=== PATIENT | female | born 2000 | race Caucasian/White ===

== ENCOUNTER 2022-07-31 12:37 | Inpatient (IN) ==
--- NOTE | 2022-07-31 13:38 | Emergency Department Note ---
Impression & Plan Depression with suicidal ideation ED Provider Note NAME: DELMI ZHOU AGE: 21 SEX: F ARRIVES VIA: [employer] INFORMANT: Patient ED PROVIDER(S): Ulises Chandler MD CHIEF COMPLAINT: Suicidal ideation with plan, referred. PLAN: Disposition: Admit MEDICAL DECISION MAKING: The patient has a 21-year-old woman, [facility] who presents to the emergency department referred from [facility] or evaluation of suicidal ideation with plan to overdose on her medications in the setting of a history of depression and prior suicide attempt when she was 14 years old. Patient reports she has been feeling increasingly depressed, hopeless with suicidal ideation over the st week or so where she she reports she has had several people he is close to over the past 6 months. She reports school is also a stressor. She denies any recent illness including fevers, chills, cough, congestion, GI or symptoms. She uses marijuana daily. She denies etoh or drug use. On arrival the patient is melancholy appearing but no acute distress, afebrile with stable vital signs. She has a flat affect. She reports depression, hopelessness and SI with plan to overdose per HPI above. Exam is otherwise unremarkable. WBC 4.6K, non-specific. H/H and platelets wnl. Chemistry without metabolic acidosis. Electrolytes and LFTs unremarkable. TSH wnl. Hcg negative. UA without convincing evidence of infection. Drug screen positive for THC and Benzodiazepines. Covid-19 RNA, NAAT negative. The patient was medically clear. The patient is interested and willing for inpatient psychiatric admission. Patient was accepted to for voluntary admission. 201 signed. Triage Nursing notes reviewed and agree them. Prior/outside medical records reviewed Vital Signs: reviewed Differential diagnosis: Mood disorder, infection, hypoglycemia, electrolyte abnormalities, cardiac sources, intracerebral event, toxicologic, trauma, neurologic, as well as other pathologies. ER treatment provided: See below. Laboratory studies: See below HPI: The patient has a 21-year-old woman, [facility] who presents to the emergency department referred from [facility] or evaluation of suicidal ideation with plan to overdose on her medications in the setting of a history of depression and prior suicide attempt when she was 14 years old. Patient reports she has been feeling increasingly depressed, hopeless with suicidal ideation over the past week or so where she she reports she has had several people he is close to over the past 6 months. She reports school is also a stressor. She denies any recent illness including fevers, chills, cough, congestion, GI or symptoms. She uses marijuana daily. She denies etoh or drug use. ROS: See above HPI for pertinent positives & negatives. A total of 10 systems reviewed and were otherwise negative. VITALS:See Below PHYSICAL EXAMINATION: GENERAL: Awake, alert, well-appearing, in no distress HENT: Normocephalic, atraumatic. Oropharynx unremarkable. EYES: Normal conjunctiva. Sclera non-icteric. NECK: Supple. No nuchal rigidity. FROM. No JVD. RESPIRATORY: Clear to auscultation. CARDIAC: Regular rate, normal rhythm. Extremities warm and well perfused. Pulses equal. ABDOMEN: Soft, non-distended. No tenderness to palpation. No rebound or guarding. No masses. RECTAL: Deferred. MUSCULOSKELETAL: Chest examination reveals no tenderness. The back is symmetrical on inspection without obvious abnormality. There is no CVA tenderness to palpation. No joint edema. LOWER EXTREMITIES: Calves are equal size bilaterally and non-tender. No edema. No discoloration. NEURO: Normal sensorium. No sensory or motor deficits noted. SKIN: No rash or jaundice noted. PSYCH: Endorses depression, SI with plan, hopelessness. Ulises Chandler MD Past Med/Surg History Medical History Depression Intentional overdose Per patient suicide attempt by overdose when she was 14 years old. Social History Smoking Status: Current every day smoker Preferred Language: French Communication Ability: Effective Director Of Instrumental Music Required: No Beliefs That Will Affect Care: None Feels Safe at Home: Yes Gender Identity: Female Assistive Devices: Contacts Allergies Allergies Allergy/AdvReac Type Severity Reaction Status Date / Time No Known Allergies Allergy Unverified 07/31/22 13:22 Home Meds Home Medications Medication Instructions Recorded Confirmed Lamictal 25 mg PO DAILY 07/31/22 07/31/22 Prozac 40 mg PO DAILY 07/31/22 07/31/22 Rexulti 1 mg PO DAILY 07/31/22 07/31/22 Results & Data (ED) Vital Signs Vital Signs - 24 hr 07/31/22 12:45 Temperature 36.9 C Temperature Source Oral Pulse Rate 96 H Respiratory Rate 18 Respiratory Effort / Characteristics Non-Labored Spontaneous Respiratory Depth Normal Respiratory Pattern Regular Blood Pressure 129/99 Blood Pressure Mean 109 Blood Pressure Position Sitting Pulse Oximetry 99 Oxygen Delivery Method Room Air Sepsis Recent Fever Within 48 Hours No Sepsis New/Unexplained Change in Mental Status No Sepsis Action Taken by Nursing No Action Required Laboratory Data Attestation: I reviewed the patient's lab results. 07/31/22 13:01 07/31/22 13:01 Lab Results 07/31/22 07/31/22 07/31/22 Range/Units 12:50 12:50 13:00 WBC (4.8-10.8) K/ul RBC (4.20-5.40) M/uL Hgb (12.0-16.0) g/dl Hct (37.0-47.0) % MCV (80.0-100.0) fL MCH (25.0-34.0) pg MCHC (32.0-36.0) g/dL RDW Std Deviation (36.4-46.3) fL RDW Coeff of Jessica (11.5-14.5) % Plt Count (130-400) K/uL MPV (9.4-12.4) fL Immature Gran % (Auto) % Neut % (Auto) % Lymph % (Auto) % Millard % (Auto) % Eos % (Auto) % Baso % (Auto) % Neut # (Auto) (1.40-6.50) K/uL Lymph # (Auto) (1.2-3.4) K/uL Millard # (Auto) (0.11-0.59) K/uL Eos # (Auto) (0-0.50) K/uL Baso # (Auto) (0-0.2) K/uL Immature Gran # (Auto) (0.01-0.20) K/uL Sodium (136-145) mmol/L Potassium (3.5-5.1) mmol/L Chloride (98-107) mmol/L Carbon Dioxide (21-32) mmol/L Anion Gap (3-11) BUN (6-23) mg/dl Creatinine (0.6-1.2) mg/dl Est Cr Clr Drug Dosing ml/min Est GFR ( Amer) ml/min Est GFR (Non-Af Amer) ml/min BUN/Creatinine Ratio (10-20) Glucose (70-99(Fasting)) mg/dl Calcium (8.5-10.1) mg/dl Total Bilirubin (0.2-1.0) mg/dl AST (13-39) U/L ALT (7-52) U/L Alkaline Phosphatase (34-104) U/L Total Protein (6.0-8.3) gm/dl Albumin (3.4-5.0) gm/dl Globulin (2.5-4.0) gm/dl Albumin/Globulin Ratio (0.9-2) TSH (0.300-4.500) uIu/ml HCG, Qual (Negative) Urine Color Yellow Urine Appearance Clear (Clear) Urine pH 7.0 (4.5-7.5) Ur Specific Odin 1.011 (1.000-1.030) Urine Protein Negative (Negative) Urine Glucose (UA) Negative (Negative) Urine Ketones Negative (Negative) Urine Blood Negative (Negative) Urine Nitrite Negative (Negative) Urine Bilirubin Negative (Negative) Urine Urobilinogen Negative (Negative) Ur Leukocyte Esterase Negative (Negative) Salicylates (3.0-30) mg/dl Urine Opiates Screen Neg (Neg) Ur Methadone, Qual Neg (Neg) Acetaminophen (10-30) ug/ml Urine Barbiturates Neg (Neg) Ur Phencyclidine (PCP) Neg (Neg) U Amphetamin/Meth Scrn Neg (Neg) MDMA (Ecstasy) Screen Neg (Neg) U Benzodiazepines Scrn Pos H (Neg) Ur Cocaine Metabolite Neg (Neg) U Marijuana (THC) Screen Pos H (Neg) Ethyl Alcohol mg/dL (<10.0) mg/dl SARS-CoV-2, RNA, NAAT NEGATIVE (NEGATIVE) 07/31/22 07/31/22 07/31/22 Range/Units 13:01 13:01 13:01 WBC 4.66 L (4.8-10.8) K/ul RBC 4.55 (4.20-5.40) M/uL Hgb 14.1 (12.0-16.0) g/dl Hct 39.6 (37.0-47.0) % MCV 87.0 (80.0-100.0) fL MCH 31.0 (25.0-34.0) pg MCHC 35.6 (32.0-36.0) g/dL RDW Std Deviation 40.1 (36.4-46.3) fL RDW Coeff of Jessica 12.7 (11.5-14.5) % Plt Count 343 (130-400) K/uL MPV 9.6 (9.4-12.4) fL Immature Gran % (Auto) 0.2 % Neut % (Auto) 61.9 % Lymph % (Auto) 29.8 % Millard % (Auto) 7.3 % Eos % (Auto) 0.4 % Baso % (Auto) 0.4 % Neut # (Auto) 2.88 (1.40-6.50) K/uL Lymph # (Auto) 1.39 (1.2-3.4) K/uL Millard # (Auto) 0.34 (0.11-0.59) K/uL Eos # (Auto) 0.02 (0-0.50) K/uL Baso # (Auto) 0.02 (0-0.2) K/uL Immature Gran # (Auto) 0.01 (0.01-0.20) K/uL Sodium 138 (136-145) mmol/L Potassium 3.6 (3.5-5.1) mmol/L Chloride 107 (98-107) mmol/L Carbon Dioxide 24 (21-32) mmol/L Anion Gap 7 (3-11) BUN 10 (6-23) mg/dl Creatinine 0.60 (0.6-1.2) mg/dl Est Cr Clr Drug Dosing 145.2 ml/min Est GFR ( Amer) > 150.0 ml/min Est GFR (Non-Af Amer) 130.3 ml/min BUN/Creatinine Ratio 16.7 (10-20) Glucose 100 H (70-99(Fasting)) mg/dl Calcium 9.4 (8.5-10.1) mg/dl Total Bilirubin 0.5 (0.2-1.0) mg/dl AST 17 (13-39) U/L ALT 21 (7-52) U/L Alkaline Phosphatase 43 (34-104) U/L Total Protein 7.5 (6.0-8.3) gm/dl Albumin 4.9 (3.4-5.0) gm/dl Globulin 2.6 (2.5-4.0) gm/dl Albumin/Globulin Ratio 1.9 (0.9-2) TSH 1.374 (0.300-4.500) uIu/ml HCG, Qual (Negative) Urine Color Urine Appearance (Clear) Urine pH (4.5-7.5) Ur Specific Odin (1.000-1.030) Urine Protein (Negative) Urine Glucose (UA) (Negative) Urine Ketones (Negative) Urine Blood (Negative) Urine Nitrite (Negative) Urine Bilirubin (Negative) Urine Urobilinogen (Negative) Ur Leukocyte Esterase (Negative) Salicylates (3.0-30) mg/dl Urine Opiates Screen (Neg) Ur Methadone, Qual (Neg) Acetaminophen (10-30) ug/ml Urine Barbiturates (Neg) Ur Phencyclidine (PCP) (Neg) U Amphetamin/Meth Scrn (Neg) MDMA (Ecstasy) Screen (Neg) U Benzodiazepines Scrn (Neg) Ur Cocaine Metabolite (Neg) U Marijuana (THC) Screen (Neg) Ethyl Alcohol mg/dL (<10.0) mg/dl SARS-CoV-2, RNA, NAAT (NEGATIVE) 07/31/22 07/31/22 07/31/22 Range/Units 13:01 13:01 13:01 WBC (4.8-10.8) K/ul RBC (4.20-5.40) M/uL Hgb (12.0-16.0) g/dl Hct (37.0-47.0) % MCV (80.0-100.0) fL MCH (25.0-34.0) pg MCHC (32.0-36.0) g/dL RDW Std Deviation (36.4-46.3) fL RDW Coeff of Jessica (11.5-14.5) % Plt Count (130-400) K/uL MPV (9.4-12.4) fL Immature Gran % (Auto) % Neut % (Auto) % Lymph % (Auto) % Millard % (Auto) % Eos % (Auto) % Baso % (Auto) % Neut # (Auto) (1.40-6.50) K/uL Lymph # (Auto) (1.2-3.4) K/uL Millard # (Auto) (0.11-0.59) K/uL Eos # (Auto) (0-0.50) K/uL Baso # (Auto) (0-0.2) K/uL Immature Gran # (Auto) (0.01-0.20) K/uL Sodium (136-145) mmol/L Potassium (3.5-5.1) mmol/L Chloride (98-107) mmol/L Carbon Dioxide (21-32) mmol/L Anion Gap (3-11) BUN (6-23) mg/dl Creatinine (0.6-1.2) mg/dl Est Cr Clr Drug Dosing ml/min Est GFR ( Amer) ml/min Est GFR (Non-Af Amer) ml/min BUN/Creatinine Ratio (10-20) Glucose (70-99(Fasting)) mg/dl Calcium (8.5-10.1) mg/dl Total Bilirubin (0.2-1.0) mg/dl AST (13-39) U/L ALT (7-52) U/L Alkaline Phosphatase (34-104) U/L Total Protein (6.0-8.3) gm/dl Albumin (3.4-5.0) gm/dl Globulin (2.5-4.0) gm/dl Albumin/Globulin Ratio (0.9-2) TSH (0.300-4.500) uIu/ml HCG, Qual Negative (Negative) Urine Color Urine Appearance (Clear) Urine pH (4.5-7.5) Ur Specific Odin (1.000-1.030) Urine Protein (Negative) Urine Glucose (UA) (Negative) Urine Ketones (Negative) Urine Blood (Negative) Urine Nitrite (Negative) Urine Bilirubin (Negative) Urine Urobilinogen (Negative) Ur Leukocyte Esterase (Negative) Salicylates < 3.0 L (3.0-30) mg/dl Urine Opiates Screen (Neg) Ur Methadone, Qual (Neg) Acetaminophen < 3 L (10-30) ug/ml Urine Barbiturates (Neg) Ur Phencyclidine (PCP) (Neg) U Amphetamin/Meth Scrn (Neg) MDMA (Ecstasy) Screen (Neg) U Benzodiazepines Scrn (Neg) Ur Cocaine Metabolite (Neg) U Marijuana (THC) Screen (Neg) Ethyl Alcohol mg/dL < 10.0 (<10.0) mg/dl SARS-CoV-2, RNA, NAAT (NEGATIVE) Administered Medications Hydroxyzine HCl (Hydroxyzine Hcl 25 Mg Tab) 50 mg PO HSZ PRN PRN Reason: Insomnia Stop: 08/30/22 16:03 Last Admin: 07/31/22 22:03 Dose: 50 mg Documented By: DMT Discharge Plan Visit Data Chief Complaint: Mental Health Evaluation ED Provider: Ulises Chandler Discharge Problem: Depression with suicidal ideation Patient Disposition: Admitted As Inpatient Discharge Instructions Interventions: ED Discharge Assessment Last Done: 07/31/22 16:19
[2022-07-31 13:46] LABS: Basophils # (auto) 0.02 K/uL (0-0.2); Basophils % (auto) 0.4 %; Eosinophils # (auto) 0.02 K/uL (0-0.50); Eosinophils % (auto) 0.4 %; Hematocrit (blood only) 39.6 % (37.0-47.0); Hemoglobin 14.1 g/dl (12.0-16.0); Immature Granulocytes # (auto) 0.01 K/uL (0.01-0.20); Immature Granulocytes % (auto) 0.2 %; Lymphocytes # (auto) 1.39 K/uL (1.2-3.4); Lymphocytes % (auto) 29.8 %; Mean Corpuscular Hgb Conc 35.6 g/dL (32.0-36.0); Mean Platelet Volume 9.6 fL (9.4-12.4); Monocytes # (auto) 0.34 K/uL (0.11-0.59); Monocytes % (auto) 7.3 %; Neutrophils # (auto) 2.88 K/uL (1.40-6.50); Neutrophils % (auto) 61.9 %; Platelet Count 343 K/uL (130-400); RDW Coefficient of Variation 12.7 % (11.5-14.5); RDW Standard Deviation 40.1 fL (36.4-46.3); Red Blood Count 4.55 M/uL (4.20-5.40); White Blood Count 4.66 K/ul (4.8-10.8)
[2022-07-31 13:51] LABS: Pregnancy Test, Serum Negative (Negative)
[2022-07-31 14:07] LABS: Appearance Urine Clear (Clear); Bilirubin Urine Negative (Negative); Blood Urine Negative (Negative); Color Urine Yellow; Glucose Urine UA Negative (Negative); Ketones Urine Negative (Negative); Leukocyte Esterase Urine Negative (Negative); Nitrite Urine Negative (Negative); Protein Urine Negative (Negative); Specific Gravity Urine 1.011 (1.000-1.030); Urobilinogen Urine Negative (Negative)
[2022-07-31 14:09] LABS: Albumin Level 4.9 gm/dl (3.4-5.0); Anion Gap 7 (3-11); Bilirubin,Total 0.5 mg/dl (0.2-1.0); Calcium 9.4 mg/dl (8.5-10.1); Carbon Dioxide 24 mmol/L (21-32); Chloride 107 mmol/L (98-107); Potassium 3.6 mmol/L (3.5-5.1); Sodium 138 mmol/L (136-145)
[2022-07-31 14:13] LABS: Acetaminophen < 3 ug/ml (10-30); Salicylate < 3.0 mg/dl (3.0-30)
[2022-07-31 14:15] LABS: Alanine Aminotransferase 21 U/L (7-52); Albumin Globulin Ratio 1.9 (0.9-2); Alkaline Phosphatase 43 U/L (34-104); Aspartate Aminotransferase 17 U/L (13-39); BUN Creatinine Ratio 16.7 (10-20); Blood Urea Nitrogen 10 mg/dl (6-23); Creatinine Clr Calc Pharmacy 145.2 ml/min; Est GFR (African American) > 150.0 ml/min; Est GFR (Non-African American) 130.3 ml/min; Globulin 2.6 gm/dl (2.5-4.0); Glucose 100 mg/dl (70-99(Fasting)); Total Protein 7.5 gm/dl (6.0-8.3)
[2022-07-31 14:15] LABS: Amphetamines+Metham, Urine Neg (Neg); Barbiturates, Urine Neg (Neg); Benzodiazepine, Urine Pos (Neg); Cocaine, Urine Neg (Neg); MDMA (Ecstacy), Urine Neg (Neg); Methadone, Urine Neg (Neg); Opiate, Urine Neg (Neg); Phencyclidine, Urine Neg (Neg)
[2022-07-31] MEDS ORDERED: hydrOXYzine HCl 25 MG TAB PO PRN ×2 (16:04)
[2022-07-31] MEDS ORDERED: BISMUTH SUBSALICYLATE LIQD 236 ML PO PRN (16:04)
[2022-07-31] MEDS ORDERED: SODIUM CHLORIDE 0.65% NA SOLN 45 ML (OCEAN) PRN (16:04)
[2022-07-31] MEDS ORDERED: ALUMINUM/MAGNESIUM SUSP 30 ML UDC PO PRN (16:04)
[2022-07-31] MEDS ORDERED: MAGNESIUM HYDROXIDE SUSP 30 ML UDC PO PRN (16:04)
[2022-07-31] MEDS ORDERED: ACETAMINOPHEN 325 MG TAB PO PRN (16:04)
[2022-07-31] MEDS ORDERED: ALPRAZolam 0.5 MG TABLET PO PRN (16:43)
[2022-08-01] MEDS ORDERED: NICOTINE POLACRILEX 2 MG GUM MT PRN (13:21)
--- NOTE | 2022-08-01 13:28 | History & Physical ---
Date of Service August 01, 2022 Impression / Recommendations Impression Lorraine is a 21 year old woman and [employer] student who was admitted for worsening depression with SI with plans of overdosing. Diagnostically consistent with major depressive disorder, generalized anxiety disorder with panic attacks, PTSD, and ADHD per history with possibility that cannabis use could also be contributing to depression. Possibility of cluster B traits vs trauma component contributing to history of self-harm and chronic intermittent SI. She is deemed in need of psychiatric hospitalization for diagnostic clarification, safety and stabilization, medication management and development of further coping skills. She signed a 72 hour notice but is agreeable to getting treatment in the hospital as long as it is a short admission. Discussed medication treatment options in detail. Discussed risks, benefits and alternatives. Patient would like to continue with lamictal for depression, wants to discontinue fluoxetine and Rexulti (which she hasn't been taking consistently) and would like to start and consented to mirtazapine for sleep, depression, anxiety and appetite. Reviewed side effects including but not limited to: toxic fatal rash with lamictal and need to restart at 25mg daily if she ever misses more than 3 days of doses, sedation, increased appetite and counseled on black box warning of potential for emergence of or increased SI and need to let staff know should this occur or should they feel unsafe. Also discussed importance of seeking emergency care following discharge if this side effect occurs in the future with mirtazapine. (1) MDD (major depressive disorder), recurrent episode, severe: (2) Generalized anxiety disorder with panic attacks: (3) Post traumatic stress disorder (PTSD): (4) Self-harming behavior: (5) ADHD (attention deficit hyperactivity disorder): (6) Cannabis use with anxiety disorder: Plan 08/01/22: The patient was admitted to the [facility] ([facility] mental health unit) on q15 min checks (behavioral with suicide precautions) for safety. The patient will participate in group, recreational, and milieu therapies and will be offered additional individual and family sessions as clinically appropriate. -lamictal 25mg qd -start mirtazapine 15mg hs -stop fluoxetine and Rexulti -Will hold Vyvanse as non-formulary and she only takes intermittently and feels she does need while in the hospital Inventory Assets Strengths: supportive relationships, willing to get treatment, resilient, has outpatient psychiatrist Needs: safety and stabilization, medication adjustment, additional coping skills, increased outpatient services Suicide Risk Level Suicide Risk Level: High-Moderate (q15 min suicide checks) (severe depression with SI with plan prior to admission but feels safe in the hospital, able to safety contract and agrees to let nursing/staff know should they develop plan, intent or feel unable to remain safe. ) Risk Factors Assessment Male: No : Yes Do You Have Access To A Gun?: No Mental Health Diagnoses: Yes Previous Attempt: Yes Family History of Suicide: No Previous Psychiatric Hospitalization: No Protective Factors Assessment Stable Relationships: Yes Supportive Family: Yes Good Rapport with Provider: Yes Psychiatric History Identifying Data LORRAINE ZHOU is a 21-year-old [employer] senior who currently lives in [place] in a home unit she rents with roommates, has a history of depression, anxiety and ADHD and was admitted on 07/31/22 16:04 on a 201 voluntary commitment for worsening depression and SI with plans of overdosing on her medication. Chief Complaint "I'm been worried a lot about the future". History of Present Illness She presents for psychiatric admission,referred to the ED by [facility], for worsening depression and SI with plan of overdosing on her medication in the context of multiple psychosocial stressors planning for the future and upcoming graduation/academic stress. Academics have been her main stressors due to a deferred class from last semester with outstanding essays, her current classes are going alright. She thinks she is on track to graduate as long as she passes all her remaining classes. 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 Has been depressed since January since she started her senior year and worsened further in April and May. The depression makes it hard for her to go and stay in class, to focus and complete class assignments, has been slightly more socially isolated, significant difficulty with sleeping and eating. Has been experiencing SI since age 12 which have been on and off for many years. SI worsened in January and in April/May got to the point of sometimes thinking of plans. Denies any rehearsal behaviors. Identifies her parents, friends and the future as reasons for living. Also with significant anxiety and near daily panic attacks. Self-harms via cutting (normally her thighs) and burning via a sanitation worker hosing machinery on thighs typically once weekly. Her appetite has been very low which is also a recent stressor. She goes through cycles of binge eating and then restricting. She only eats a small group of foods like scottish fries. She finds that food "gives me a lot of anxiety". Has taken laxatives before, but has never purged and never exercised excessively. She feels like her appetite actually improved a little with being on stimulant medications. Endorses significant PTSD from childhood events including intrusive flashbacks, nightmares/night terrors (2-3 times per week), mood changes, avoidance. Additional recent history reviewed and confirmed as documented by ED psych CM on 07/31/2022: "The patient presented via [facility] police and reports suicidal ideation with a plan to overdose on her medications (reports history of the same when she was 14 years-old, but she cant remember what she took at that time). The patient reports she is medication compliant but is in the process of tapering off of her Prozac, Rexualte and Lamictal and was scheduled to have a psychiatry appointment tomorrow (provider is in her hometown of [place]). The patient reports stressors of school and family life and reports depressive symptoms of anergia, anhedonia, feeling helpless / hopeless and decreased concentration. She reports she only eats 1 meal a day due to her school schedule and reports poor sleep (around 4 hours per night) with problems falling and staying asleep. The patient denies manic symptoms but reports high daily levels of anxiety where she hyperventilates and has internal catatonia. The patient denies hallucinations and paranoid thinking but reports a remote history of auditory hallucinations. The patient reports she vapes and uses marijuana on a daily basis but denies other drug use. The patient denies current self-injurious behaviors but reports a history of cutting and burning when she was a teenager. The patient denies homicidal ideations, aggressive behavior and access to weapons. The patient is willing for treatment and medical clearance explained." She is currently prescribed psychiatric medications of fluoxetine 20 or 30 or 40mg daily, Rexulti 2mg daily, Lamictal 25mg daily, Vyvanse 40mg but doesn't take daily, Xanax 0.5mg BID prn for panic attacks (typically takes once daily or every other day). Psychiatric ROS notable for no current nor history of symptoms of dedra, psychosis (heard whispers for 1-2 months and would see things out of the corner of her eye during a depressive episode and was also uses cannabis, symptoms resolved when she stopped using cannabis). Past Psychiatric History Current Psychiatric Diagnosis: MDD, anxiety, ADHD (diagnosed around age [age]) Outpatient Services: telepsychiatry with provider in [place] Dr. Falcon; [facility] assigned her to a therapist but she hasn't met them yet Previous Psych Admissions: none, did an IOP x2 as an adolescent Do You Have Access To A Gun?: No History of Previous Suicide Attempt: Yes Describe Attempts in the Past: age 14 via overdose (never sought help or tx for this) Past Medication Trials: Adderall, Klonopin, trazodone for sleep, Wellbutrin, sertraline, escitalopram, venlafaxine, Cymbalta, possibly abilify Past Head Trauma/Neuro History History of Concussion/Seizure: Yes (possible concussion at age 3 ?LOC) No hx seizures Allergies Allergy/AdvReac Type Severity Reaction Status Date / Time No Known Allergies Allergy Verified 08/01/22 13:33 Home Medications Medication Instructions Recorded Confirmed Type dextroamphetamine-amphetamine 10 10 mg PO DAILY 03/23/19 03/23/19 History mg tablet (Adderall) fluoxetine 20 mg capsule (Prozac) 20 mg PO DAILY 03/23/19 03/23/19 History hydroxyzine HCl 10 mg tablet 10 mg PO TID PRN 03/23/19 03/23/19 History Lamictal 25 mg PO DAILY 07/31/22 07/31/22 History Prozac 40 mg PO DAILY 07/31/22 07/31/22 History Rexulti 1 mg PO DAILY 07/31/22 07/31/22 History Family History Family History of: Depression (mom and dad), Anxiety (mom and dad) and Other- List under Comment (dad with ADHD; OCD on maternal side) Alcohol History Hx of Alcohol Use Over the Past 12 Months: No (denies) AUDIT Total Score: 0 Smoking Use Have You Smoked or Used Tobacco Products in the Last 30 Days: Yes tobacco type: e-cigarettes Smoking Status: Current every day smoker Smoking packs per day: 0.25 Substance History Hx of Prescription Med Misuse Over the Past 12 Months: No Hx of Over the Counter Med Misuse Over the Past 12 Months: No Hx of Inhalent Misuse Over the Past 12 Months: No Hx of Organic Substance Use Over the Past 12 Months: Yes (marijuana daily) Hx of Illegal Substances/Street Drug Use Over Past 12 Months: No Problems as a Result of Past Substance Use: None Identified Daily use of cannabis via inhalation usually in the evenings, likes that it has a calming effect, will use socially when peers are drinking; doesn't like that sometimes it makes her a bit paranoid or binge eat Personal History Living Arrangements: Home Childhood: parents are and she grew up in [place]. has an older brother. She feels her parents are very supportive. 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 Patient History Medical History (Updated 08/01/22 @ 14:27 by Mary Kay Dang MD) Allergy Attention deficit disorder Cough Depression Depression Intentional overdose Per patient suicide attempt by overdose when she was 14 years old. Panic attack Self-harming behavior SOB (shortness of breath) Surgical History History of placement of ear tubes Family History Mother No problems noted. Father Diabetes Social History Smoking Status: Current every day smoker Hx Alcohol Use: No Preferred Language: Vietnamese Communication Ability: Effective Scow Hand Required: No Beliefs That Will Affect Care: None Feels Safe at Home: Yes Gender Identity: Female Assistive Devices: Contacts Review of Systems 2 Review of Systems: All systems reviewed & are unremarkable except as noted in HPI & below Physical Exam Psychiatric: Orientation: alert and oriented x 3 Apperance: appropriately dressed and appropriately groomed Eye Contact: good eye contact Motor Behavior: no abnormal motor movements Speech: normal rate/rhythm/volume of speech Affect: + depressed affect and + anxious affect Mood: + depressed mood (she describes as "very apathetic") and + anxious mood Thought Process: goal directed thought process Thought Content: reality based without delusions Suicidal Thoughts: denies suicidal thoughts (none since last night when she came to the ED ), denies suicidal plan (none for here in the hospital, thoughts of overdosing prior to admission) and denies suicidal intent Homicidal Thoughts: denies homicidal thoughts Hallucinations: no auditory hallucinations and no visual hallucinations Cognition: recent memory grossly intact, remote memory grossly intact, attention grossly intact and language grossly intact Estimated Intelligence: consistent with education level Insight: + limited insight Judgment: + limited judgement Vital Signs (Past 24 Hours): Last Vital Signs Temp 36.6 C 08/01/22 06:28 Pulse 66 08/01/22 06:29 Resp 16 08/01/22 06:28 BP 114/76 08/01/22 06:29 Pulse Ox 99 07/31/22 12:45 O2 Del Method 07/31/22 12:45 Exam Statement: A physical exam was performed in the ED by Dr. Chandler for the purposes of medical clearance. I accept that physical as correct and adequate for the purposes of the inpatient physical exam. Results & Data (U) Laboratory Results Laboratory Results - last 24 hr 07/31/22 07/31/22 07/31/22 12:50 12:50 12:50 WBC RBC Hgb Hct MCV MCH MCHC RDW Std Deviation RDW Coeff of Jessica Plt Count MPV Immature Gran % (Auto) Neut % (Auto) Lymph % (Auto) [place] % (Auto) Eos % (Auto) Baso % (Auto) Neut # (Auto) Lymph # (Auto) [place] # (Auto) Eos # (Auto) Baso # (Auto) Immature Gran # (Auto) Sodium Potassium Chloride Carbon Dioxide Anion Gap BUN Creatinine Est Cr Clr Drug Dosing Est GFR ( Amer) Est GFR (Non-Af Amer) BUN/Creatinine Ratio Glucose Calcium Total Bilirubin AST ALT Alkaline Phosphatase Total Protein Albumin Globulin Albumin/Globulin Ratio TSH HCG, Qual Urine Color Yellow Urine Appearance Clear Urine pH 7.0 Ur Specific [place] 1.011 Urine Protein Negative Urine Glucose (UA) Negative Urine Ketones Negative Urine Blood Negative Urine Nitrite Negative Urine Bilirubin Negative Urine Urobilinogen Negative Ur Leukocyte Esterase Negative Salicylates Urine Opiates Screen Neg Ur Methadone, Qual Neg Acetaminophen Urine Barbiturates Neg Ur Phencyclidine (PCP) Neg U Amphetamin/Meth Scrn Neg MDMA (Ecstasy) Screen Neg U OH-Alprazolam Confrm Pending U Benzodiazepines Scrn Pos H 7-Amino Clonazepam Pending Ur Nordiazepam Confirm Pending U OH-ethylflurazepam Pending U Lorazepam Cnf GC/MS Pending U Oxazepam Confm GC/MS Pending Ur Temazepam Confirm Pending U OH-Triazolam Confirm Pending U OH-Midazolam Confirm Pending Ur Cocaine Metabolite Neg U Marijuana (THC) Screen Pos H U Marijuana THC Carboxy Pending Drug Screen Comment Pending Ethyl Alcohol mg/dL SARS-CoV-2, RNA, NAAT 07/31/22 07/31/22 07/31/22 13:00 13:01 13:01 WBC 4.66 L RBC 4.55 Hgb 14.1 Hct 39.6 MCV 87.0 MCH 31.0 MCHC 35.6 RDW Std Deviation 40.1 RDW Coeff of Jessica 12.7 Plt Count 343 MPV 9.6 Immature Gran % (Auto) 0.2 Neut % (Auto) 61.9 Lymph % (Auto) 29.8 Comal % (Auto) 7.3 Eos % (Auto) 0.4 Baso % (Auto) 0.4 Neut # (Auto) 2.88 Lymph # (Auto) 1.39 Comal # (Auto) 0.34 Eos # (Auto) 0.02 Baso # (Auto) 0.02 Immature Gran # (Auto) 0.01 Sodium 138 Potassium 3.6 Chloride 107 Carbon Dioxide 24 Anion Gap 7 BUN 10 Creatinine 0.60 Est Cr Clr Drug Dosing 145.2 Est GFR ( Amer) > 150.0 Est GFR (Non-Af Amer) 130.3 BUN/Creatinine Ratio 16.7 Glucose 100 H Calcium 9.4 Total Bilirubin 0.5 AST 17 ALT 21 Alkaline Phosphatase 43 Total Protein 7.5 Albumin 4.9 Globulin 2.6 Albumin/Globulin Ratio 1.9 TSH HCG, Qual Urine Color Urine Appearance Urine pH Ur Specific [place] Urine Protein Urine Glucose (UA) Urine Ketones Urine Blood Urine Nitrite Urine Bilirubin Urine Urobilinogen Ur Leukocyte Esterase Salicylates Urine Opiates Screen Ur Methadone, Qual Acetaminophen Urine Barbiturates Ur Phencyclidine (PCP) U Amphetamin/Meth Scrn MDMA (Ecstasy) Screen U OH-Alprazolam Confrm U Benzodiazepines Scrn 7-Amino Clonazepam Ur Nordiazepam Confirm U OH-ethylflurazepam U Lorazepam Cnf GC/MS U Oxazepam Confm GC/MS Ur Temazepam Confirm U OH-Triazolam Confirm U OH-Midazolam Confirm Ur Cocaine Metabolite U Marijuana (THC) Screen U Marijuana THC Carboxy Drug Screen Comment Ethyl Alcohol mg/dL SARS-CoV-2, RNA, NAAT NEGATIVE 07/31/22 07/31/22 07/31/22 13:01 13:01 13:01 WBC RBC Hgb Hct MCV MCH MCHC RDW Std Deviation RDW Coeff of Jessica Plt Count MPV Immature Gran % (Auto) Neut % (Auto) Lymph % (Auto) [place] % (Auto) Eos % (Auto) Baso % (Auto) Neut # (Auto) Lymph # (Auto) [place] # (Auto) Eos # (Auto) Baso # (Auto) Immature Gran # (Auto) Sodium Potassium Chloride Carbon Dioxide Anion Gap BUN Creatinine Est Cr Clr Drug Dosing Est GFR ( Amer) Est GFR (Non-Af Amer) BUN/Creatinine Ratio Glucose Calcium Total Bilirubin AST ALT Alkaline Phosphatase Total Protein Albumin Globulin Albumin/Globulin Ratio TSH 1.374 HCG, Qual Urine Color Urine Appearance Urine pH Ur Specific [place] Urine Protein Urine Glucose (UA) Urine Ketones Urine Blood Urine Nitrite Urine Bilirubin Urine Urobilinogen Ur Leukocyte Esterase Salicylates < 3.0 L Urine Opiates Screen Ur Methadone, Qual Acetaminophen < 3 L Urine Barbiturates Ur Phencyclidine (PCP) U Amphetamin/Meth Scrn MDMA (Ecstasy) Screen U OH-Alprazolam Confrm U Benzodiazepines Scrn 7-Amino Clonazepam Ur Nordiazepam Confirm U OH-ethylflurazepam U Lorazepam Cnf GC/MS U Oxazepam Confm GC/MS Ur Temazepam Confirm U OH-Triazolam Confirm U OH-Midazolam Confirm Ur Cocaine Metabolite U Marijuana (THC) Screen U Marijuana THC Carboxy Drug Screen Comment Ethyl Alcohol mg/dL < 10.0 SARS-CoV-2, RNA, NAAT 07/31/22 13:01 WBC RBC Hgb Hct MCV MCH MCHC RDW Std Deviation RDW Coeff of Jessica Plt Count MPV Immature Gran % (Auto) Neut % (Auto) Lymph % (Auto) [place] % (Auto) Eos % (Auto) Baso % (Auto) Neut # (Auto) Lymph # (Auto) [place] # (Auto) Eos # (Auto) Baso # (Auto) Immature Gran # (Auto) Sodium Potassium Chloride Carbon Dioxide Anion Gap BUN Creatinine Est Cr Clr Drug Dosing Est GFR ( Amer) Est GFR (Non-Af Amer) BUN/Creatinine Ratio Glucose Calcium Total Bilirubin AST ALT Alkaline Phosphatase Total Protein Albumin Globulin Albumin/Globulin Ratio TSH HCG, Qual Negative Urine Color Urine Appearance Urine pH Ur Specific [place] Urine Protein Urine Glucose (UA) Urine Ketones Urine Blood Urine Nitrite Urine Bilirubin Urine Urobilinogen Ur Leukocyte Esterase Salicylates Urine Opiates Screen Ur Methadone, Qual Acetaminophen Urine Barbiturates Ur Phencyclidine (PCP) U Amphetamin/Meth Scrn MDMA (Ecstasy) Screen U OH-Alprazolam Confrm U Benzodiazepines Scrn 7-Amino Clonazepam Ur Nordiazepam Confirm U OH-ethylflurazepam U Lorazepam Cnf GC/MS U Oxazepam Confm GC/MS Ur Temazepam Confirm U OH-Triazolam Confirm U OH-Midazolam Confirm Ur Cocaine Metabolite U Marijuana (THC) Screen U Marijuana THC Carboxy Drug Screen Comment Ethyl Alcohol mg/dL SARS-CoV-2, RNA, NAAT Current Inpatient Medications Current Inpatient Medications: Current Inpatient Medications Acetaminophen (Acetaminophen 325 Mg Tab) 650 mg PO Q4H PRN PRN Reason: Headache or Minor Fever Stop: 08/30/22 16:03 Al Hydrox/Mg Hydrox/Simethicone (Aluminum/Magnesium Susp 30 Ml Udc) 30 ml PO Q4H PRN PRN Reason: GI Upset Stop: 08/30/22 16:03 Alprazolam (Alprazolam 0.5 Mg Tablet) 0.5 mg PO DAILY PRN PRN Reason: panic attack Stop: 08/30/22 16:42 Bismuth Subsalicylate (Bismuth Subsalicylate Liqd 236 Ml) 15 ml PO PRN PRN PRN Reason: Loose Stool Stop: 08/30/22 16:03 Hydroxyzine HCl (Hydroxyzine Hcl 25 Mg Tab) 50 mg PO HSZ PRN PRN Reason: Insomnia Stop: 08/30/22 16:03 Last Admin: 07/31/22 22:03 Dose: 50 mg Hydroxyzine HCl (Hydroxyzine Hcl 25 Mg Tab) 25 mg PO Q4H PRN PRN Reason: Anxiety Stop: 08/30/22 16:03 Magnesium Hydroxide (Magnesium Hydroxide Susp 30 Ml Udc) 30 ml PO DAILY PRN PRN Reason: Constipation Stop: 08/30/22 16:03 Sodium Chloride (Sodium Chloride 0.65% Na Soln 45 Ml (Mccone)) 1 - 2 sprays NA PRN PRN PRN Reason: Nasal Dryness/Congestion Stop: 08/30/22 16:03
[2022-08-01] MEDS ORDERED: FLUoxetine HCL 20 MG CAP PO SCH (13:30)
[2022-08-01] MEDS: SPIRONOLACTONE 25 MG TAB PO SCH (17:12)
[2022-08-01] MEDS: NICOTINE 7 MG/24 HR TDSY TD SCH (17:14)
[2022-08-01] MEDS: MIRTAZAPINE TAB 15 MG TAB PO SCH (21:07)
[2022-08-02] MEDS: NICOTINE 7 MG/24 HR TDSY TD SCH (08:58)
[2022-08-02] MEDS: SPIRONOLACTONE 25 MG TAB PO SCH (08:59)
[2022-08-02] MEDS ORDERED: lamoTRIgine 25 MG TAB PO SCH (09:00)
--- NOTE | 2022-08-02 17:00 | Psychiatric Progress Note ---
Date of Service August 02, 2022 Impression / Recommendations Impression Lorraine is a 21 year old woman and [employer] student who was admitted for worsening depression with SI with plans of overdosing. Diagnostically consistent with major depressive disorder, generalized anxiety disorder with panic attacks, PTSD, and ADHD per history with possibility that cannabis use could also be contributing to depression. Possibility of cluster B traits vs trauma component contributing to history of self-harm and chronic intermittent SI. She is deemed in need of psychiatric hospitalization for diagnostic clarification, safety and stabilization, medication management and development of further coping skills. 08/02/22: Ongoing depression with self-harm thoughts today but has not acted on these. Using Vistaril to help with anxiety related to this, reviewed other coping skills. Possible hypotension related to mirtazapine, she wants to take it again tonight, agrees to alert RNs if similar side effects occur so vital signs can be checked. Will transition lamictal to qhs dosing tomorrow as already got dose this AM. Considering option of Luvox. If BP stable could consider clonidine trial to help with anxiety and ADHD. (1) MDD (major depressive disorder), recurrent episode, severe: (2) Generalized anxiety disorder with panic attacks: (3) Post traumatic stress disorder (PTSD): (4) Self-harming behavior: (5) ADHD (attention deficit hyperactivity disorder): (6) Cannabis use with anxiety disorder: Plan 08/02/22: Continue current medications and tx plan. 08/01/22: The patient was admitted to the [facility] ([facility] mental health unit) on q15 min checks (behavioral with suicide precautions) for safety. The patient will participate in group, recreational, and milieu therapies and will be offered additional individual and family sessions as clinically appropriate. -lamictal 25mg qd -start mirtazapine 15mg hs -stop fluoxetine and Rexulti -Will hold Vyvanse as non-formulary and she only takes intermittently and feels she does need while in the hospital Inventory Assets Strengths: supportive relationships, willing to get treatment, resilient, has outpatient psychiatrist Needs: safety and stabilization, medication adjustment, additional coping skills, increased outpatient services Suicide Risk Level Suicide Risk Level: High-Moderate (q15 min suicide checks) (severe depression with SI with plan prior to admission and still with self-harm thoughts but feels safe in the hospital, able to safety contract and agrees to let nursing/staff know should they develop plan, intent or feel unable to remain safe. 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 Chief Complaint "I'm struggling today with self-harm thoughts". Review of Systems Sleep Information Total Hours of Sleep: 7 Meal Information Percent Meal Consumed - Breakfast: 5 Percent Meal Consumed - Lunch: 0 Percent Meal Consumed - Dinner: 100 Nutrition Comment: meal dated, labeled and refrigerated Subjective Subjective Patient was seen & assessed and interval progress reviewed with treatment team nursing and social work . Increased anxiety today due to more intrusive thoughts of self-harm. Slept better with mirtazapine but had sense of racing heart last night and this morning, has now resolved and she wonders if this could be due to mirtazapine. Discussed possibility if mirtazapine causing orthostatic hypotension. She wants to try it again tonight, agrees to let RNs know if HR occurs again so they can check orthostatic vitals. Overall feels "sad". Had panic attack last night and used xanax with good benefit. Typically takes lamictal at hs, got dose this morning so will change dose tomorrow to hs. Physical Exam Psychiatric Orientation: alert and oriented x 3 Apperance: appropriately dressed and appropriately groomed Eye Contact: good eye contact Motor Behavior: no abnormal motor movements Speech: normal rate/rhythm/volume of speech Affect: + depressed affect and + anxious affect Mood: + depressed mood and + anxious mood Thought Process: goal directed thought process Thought Content: reality based without delusions Suicidal Thoughts: denies suicidal thoughts (self-harm urges to cut or burn herself but not SI), denies suicidal plan and denies suicidal intent Homicidal Thoughts: denies homicidal thoughts Hallucinations: no auditory hallucinations and no visual hallucinations Cognition: recent memory grossly intact, remote memory grossly intact, attention grossly intact and language grossly intact Estimated Intelligence: consistent with education level Insight: + limited insight Judgment: + limited judgement Vital Signs (Past 24 Hours) Last Vital Signs Temp 36.7 C 08/02/22 06:38 Pulse 50 L 08/02/22 06:38 Resp 18 08/02/22 06:38 BP 103/69 08/02/22 06:41 Pulse Ox 99 07/31/22 12:45 O2 Del Method 07/31/22 12:45 Results & Data ([facility]) Current Inpatient Medications Current Inpatient Medications: Current Inpatient Medications Acetaminophen (Acetaminophen 325 Mg Tab) 650 mg PO Q4H PRN PRN Reason: Headache or Minor Fever Stop: 08/30/22 16:03 Last Admin: 08/02/22 09:03 Dose: 650 mg Al Hydrox/Mg Hydrox/Simethicone (Aluminum/Magnesium Susp 30 Ml Udc) 30 ml PO Q4H PRN PRN Reason: GI Upset Stop: 08/30/22 16:03 Alprazolam (Alprazolam 0.5 Mg Tablet) 0.5 mg PO DAILY PRN PRN Reason: panic attack Stop: 08/30/22 16:42 Last Admin: 08/01/22 17:28 Dose: 0.5 mg Bismuth Subsalicylate (Bismuth Subsalicylate Liqd 236 Ml) 15 ml PO PRN PRN PRN Reason: Loose Stool Stop: 08/30/22 16:03 Hydroxyzine HCl (Hydroxyzine Hcl 25 Mg Tab) 50 mg PO HSZ PRN PRN Reason: Insomnia Stop: 08/30/22 16:03 Last Admin: 07/31/22 22:03 Dose: 50 mg Hydroxyzine HCl (Hydroxyzine Hcl 25 Mg Tab) 25 mg PO Q4H PRN PRN Reason: Anxiety Stop: 08/30/22 16:03 Last Admin: 08/02/22 16:13 Dose: 25 mg Lamotrigine (Lamotrigine 25 Mg Tab) 25 mg PO DAILY JUSTEN Stop: 09/01/22 08:59 Last Admin: 08/02/22 08:58 Dose: 25 mg Magnesium Hydroxide (Magnesium Hydroxide Susp 30 Ml Udc) 30 ml PO DAILY PRN PRN Reason: Constipation Stop: 08/30/22 16:03 Mirtazapine (Mirtazapine Tab 15 Mg Tab) 15 mg PO HS JUSTEN Stop: 08/31/22 21:59 Last Admin: 08/01/22 21:07 Dose: 15 mg Miscellaneous (Remove Nicoderm Patch) 1 each N/A DAILY@0859 [facility] Stop: 09/01/22 08:58 Last Admin: 08/02/22 09:02 Dose: Not Given Nicotine (Nicotine 7 Mg/24 Hr Tdsy) 7 mg TD QAM [facility] Stop: 08/31/22 13:29 Last Admin: 08/02/22 08:58 Dose: 7 mg Nicotine Polacrilex (Nicotine Polacrilex 2 Mg Gum) 1 piece MT Q1H PRN PRN Reason: nicotine cravings Stop: 08/31/22 13:20 Sodium Chloride (Sodium Chloride 0.65% Na Soln 45 Ml ([place])) 1 - 2 sprays NA PRN PRN PRN Reason: Nasal Dryness/Congestion Stop: 08/30/22 16:03 Spironolactone (Spironolactone 25 Mg Tab) 150 mg PO QAM [facility] Stop: 08/31/22 13:44 Last Admin: 08/02/22 08:59 Dose: 150 mg Mental Health & Subst Abuse Tx Psychiatrist Name of Psychiatrist: SUZIE Serrano Psychiatrist's Psychiatric Appointment Comment: Virtual Therapist Name of Therapist: CIELO Montalvo Therapist's Date of Therapist Appointment: 08/10/22 Time of Therapist Appointment: 11:00 AM Therapy Appointment Comment: [facility], [address], [facility] Post Discharge Appointments Primary Care Physician Name Of Family Doctor/PCP: [facility] Time of Appointment with PCP: Please follow up with PCP as needed. Provider Appointment Comment: [place] [address] Contact Information Discharge Discharge Address: [address] [place] [address], [address], [facility]
[2022-08-02] MEDS: MIRTAZAPINE TAB 15 MG TAB PO SCH (21:08)
[2022-08-03] MEDS: SPIRONOLACTONE 25 MG TAB PO SCH (09:16)
[2022-08-03] MEDS: NICOTINE 7 MG/24 HR TDSY TD SCH (09:28)
[2022-08-03 10:10] LABS: 7-Aminoclonaz, Confirm NEGATIVE ng/mL (<25); Hydro-Alp Ur, GC/MS 120 ng/mL (<25); Hydroxyethylflurazepam, Conf NEGATIVE ng/mL (<50); Hydroxymidazolam Ur, GC/MS NEGATIVE ng/mL (<50); Hydroxytriazolam NEGATIVE ng/mL (<50); Lorazepam, Ur GC/MS NEGATIVE ng/mL (<50); Marijuana Quant, GCMS Urine 250 ng/mL (<5); Nordiazepam, Confirm NEGATIVE ng/mL (<50); Oxazepam Ur, GC/MS NEGATIVE ng/mL (<50); Temazepam, Confirm NEGATIVE ng/mL (<50)
--- NOTE | 2022-08-03 15:43 | Psychiatric Progress Note ---
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 Diagnostically consistent with major depressive disorder, generalized anxiety disorder with panic attacks, PTSD, and ADHD per history with possibility that cannabis use could also be contributing to depression. Possibility of cluster B traits vs trauma component contributing to history of self-harm and chronic intermittent SI. She is deemed in need of psychiatric hospitalization for diagnostic clarification, safety and stabilization, medication management and development of further coping skills. 08/03/22: Mood improving, no SI or self-harm thoughts so far today. Very tearful during and after family meeting so placed on MNPR as she adela by going to her room to practice relaxation strategies and want to encourage these positive coping skills. Monitor for safety and ongoing goal of stabilization. No side effects from mirtazapine last night, feels it is helping with sleep and anxiety. (1) MDD (major depressive disorder), recurrent episode, severe: (2) Generalized anxiety disorder with panic attacks: (3) Post traumatic stress disorder (PTSD): (4) Self-harming behavior: (5) ADHD (attention deficit hyperactivity disorder): (6) Cannabis use with anxiety disorder: Plan 08/03/22: Continue current medications and tx plan. 08/02/22: Continue current medications and tx plan. 08/01/22: The patient was admitted to the [facility] ([facility] mental health unit) on q15 min checks (behavioral with suicide precautions) for safety. The patient will participate in group, recreational, and milieu therapies and will be offered additional individual and family sessions as clinically appropriate. -lamictal 25mg qd -start mirtazapine 15mg hs -stop fluoxetine and Rexulti -Will hold Vyvanse as non-formulary and she only takes intermittently and feels she does need while in the hospital Inventory Assets Strengths: supportive relationships, willing to get treatment, resilient, has outpatient psychiatrist Needs: safety and stabilization, medication adjustment, additional coping skills, increased outpatient services Suicide Risk Level Suicide Risk Level: Moderate (q15 min suicide checks) (severe depression with SI with plan prior to admission but mood improving today and no self-harm urges feels safe in the hospital, able to safety contract and agrees to let nursing/staff know should they develop plan, intent or feel unable to remain safe. 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 Chief Complaint "I had a good morning". Review of Systems Sleep Information Total Hours of Sleep: 6.5 Meal Information Percent Meal Consumed - Breakfast: 40 Percent Meal Consumed - Lunch: 0 Percent Meal Consumed - Dinner: 95 Nutrition Comment: meal dated, labeled and refrigerated Subjective Subjective Patient was seen & assessed and interval progress reviewed with treatment team nursing and social work. Mood improving today. Denies SI. Tearful after family meeting due to discussion about recommendation for her to remain in the hospital for one more day given ongoing SI and self-harm thoughts yesterday but understanding of this. No racing heart or palpitations with mirtazapine last night. Reviewed that lamictal held this AM as she prefers to take it at night. Looking forward to THON. Physical Exam Psychiatric Orientation: alert and oriented x 3 Apperance: appropriately dressed and appropriately groomed Eye Contact: good eye contact Motor Behavior: no abnormal motor movements Speech: normal rate/rhythm/volume of speech Affect: + anxious affect and + tearful affect Mood: + depressed mood and + anxious mood Thought Process: goal directed thought process Thought Content: reality based without delusions Suicidal Thoughts: denies suicidal thoughts, denies suicidal plan and denies suicidal intent Homicidal Thoughts: denies homicidal thoughts Hallucinations: no auditory hallucinations and no visual hallucinations Cognition: recent memory grossly intact, remote memory grossly intact, attention grossly intact and language grossly intact Estimated Intelligence: consistent with education level Insight: + fair insight Judgment: + limited judgement Vital Signs (Past 24 Hours) Last Vital Signs Temp 36.6 C 08/03/22 06:31 Pulse 73 08/03/22 06:31 Resp 16 08/03/22 06:31 BP 107/73 08/03/22 06:31 Pulse Ox 99 07/31/22 12:45 O2 Del Method 07/31/22 12:45 Results & Data ([facility]) Laboratory Results Laboratory Results - last 24 hr 07/31/22 12:50 U OH-Alprazolam Confrm 120 H 7-Amino Clonazepam NEGATIVE Ur Nordiazepam Confirm NEGATIVE U OH-ethylflurazepam NEGATIVE U Lorazepam Cnf GC/MS NEGATIVE U Oxazepam Confm GC/MS NEGATIVE Ur Temazepam Confirm NEGATIVE U OH-Triazolam Confirm NEGATIVE U OH-Midazolam Confirm NEGATIVE U Marijuana THC Carboxy 250 H Drug Screen Comment SEE NOTE Current Inpatient Medications Current Inpatient Medications: Current Inpatient Medications Acetaminophen (Acetaminophen 325 Mg Tab) 650 mg PO Q4H PRN PRN Reason: Headache or Minor Fever Stop: 08/30/22 16:03 Last Admin: 08/02/22 09:03 Dose: 650 mg Al Hydrox/Mg Hydrox/Simethicone (Aluminum/Magnesium Susp 30 Ml Udc) 30 ml PO Q4H PRN PRN Reason: GI Upset Stop: 08/30/22 16:03 Alprazolam (Alprazolam 0.5 Mg Tablet) 0.5 mg PO DAILY PRN PRN Reason: panic attack Stop: 08/30/22 16:42 Last Admin: 08/01/22 17:28 Dose: 0.5 mg Bismuth Subsalicylate (Bismuth Subsalicylate Liqd 236 Ml) 15 ml PO PRN PRN PRN Reason: Loose Stool Stop: 08/30/22 16:03 Hydroxyzine HCl (Hydroxyzine Hcl 25 Mg Tab) 50 mg PO HSZ PRN PRN Reason: Insomnia Stop: 08/30/22 16:03 Last Admin: 07/31/22 22:03 Dose: 50 mg Hydroxyzine HCl (Hydroxyzine Hcl 25 Mg Tab) 25 mg PO Q4H PRN PRN Reason: Anxiety Stop: 08/30/22 16:03 Last Admin: 08/02/22 16:13 Dose: 25 mg Lamotrigine (Lamotrigine 25 Mg Tab) 25 mg PO HS JUSTEN Stop: 09/02/22 21:59 Magnesium Hydroxide (Magnesium Hydroxide Susp 30 Ml Udc) 30 ml PO DAILY PRN PRN Reason: Constipation Stop: 08/30/22 16:03 Mirtazapine (Mirtazapine Tab 15 Mg Tab) 15 mg PO HS JUSTEN Stop: 08/31/22 21:59 Last Admin: 08/02/22 21:08 Dose: 15 mg Miscellaneous (Remove Nicoderm Patch) 1 each N/A DAILY@0859 [facility] Stop: 09/01/22 08:58 Last Admin: 08/03/22 09:34 Dose: 1 each Nicotine (Nicotine 7 Mg/24 Hr Tdsy) 7 mg TD QAM [facility] Stop: 08/31/22 13:29 Last Admin: 08/03/22 09:28 Dose: 7 mg Nicotine Polacrilex (Nicotine Polacrilex 2 Mg Gum) 1 piece MT Q1H PRN PRN Reason: nicotine cravings Stop: 08/31/22 13:20 Sodium Chloride (Sodium Chloride 0.65% Na Soln 45 Ml ([place])) 1 - 2 sprays NA PRN PRN PRN Reason: Nasal Dryness/Congestion Stop: 08/30/22 16:03 Spironolactone (Spironolactone 25 Mg Tab) 150 mg PO QAM [facility] Stop: 08/31/22 13:44 Last Admin: 08/03/22 09:16 Dose: 150 mg Mental Health & Subst Abuse Tx Psychiatrist Name of Psychiatrist: SUZIE Harrison Psychiatrist's Date Of Appointment With Psychiatric Provider: 08/09/22 Time of Appointment with Psychiatrist: 10am Psychiatric Appointment Comment: Virtual Therapist Name of Therapist: CIELO Montalvo Therapist's Date of Therapist Appointment: 08/10/22 Time of Therapist Appointment: 11:00 AM Therapy Appointment Comment: [address] [place] [address], [address], [facility] Post Discharge Appointments Primary Care Physician Name Of Family Doctor/PCP: [facility] Time of Appointment with PCP: Please follow up with PCP as needed. Provider Appointment Comment: [place] [address] Contact Information Discharge Discharge Address: [address] [place] [address], [address], [facility]
[2022-08-03] MEDS: MIRTAZAPINE TAB 15 MG TAB PO SCH (21:41)
[2022-08-03] MEDS ORDERED: lamoTRIgine 25 MG TAB PO SCH (22:00)
--- NOTE | 2022-08-04 07:55 | Psychiatric Progress Note ---
Date of Service August 04, 2022 Impression / Recommendations Impression Lorraine is a 21 year old woman and [employer] student who was admitted for worsening depression with SI with plans of overdosing. Diagnostically consistent with major depressive disorder, generalized anxiety disorder with panic attacks, PTSD, and ADHD per history with possibility that cannabis use could also be contributing to depression. Possibility of cluster B traits vs trauma component contributing to history of self-harm and chronic intermittent SI. She is deemed in need of psychiatric hospitalization for diagnostic clarification, safety and stabilization, medication management and development of further coping skills. 08/03/22: Mood improving, no SI or self-harm thoughts so far today. Very tearful during and after family meeting so placed on MNPR as she adela by going to her room to practice relaxation strategies and want to encourage these positive coping skills. Monitor for safety and ongoing goal of stabilization. No side effects from mirtazapine last night, feels it is helping with sleep and anxiety. Inventory Assets Strengths: supportive relationships, willing to get treatment, resilient, has outpatient psychiatrist Needs: safety and stabilization, medication adjustment, additional coping skills, increased outpatient services Suicide Risk Level Suicide Risk Level: Moderate (q15 min suicide checks) (severe depression with SI with plan prior to admission but mood improving today and no self-harm urges feels safe in the hospital, able to safety contract and agrees to let nursing/staff know should they develop plan, intent or feel unable to remain safe. ) Risk Factors Assessment Male: No : Yes Do You Have Access To A Gun?: No Mental Health Diagnoses: Yes Previous Attempt: Yes Family History of Suicide: No Previous Psychiatric Hospitalization: No Protective Factors Assessment Stable Relationships: Yes Supportive Family: Yes Good Rapport with Provider: Yes Interval History Identifying Information LORRAINE ZHOU is a 21-year-old F and [employer] senior who currently lives in [place] in a home unit she rents with roommates, has a history of depression, anxiety and ADHD and was admitted on 07/31/22 16:04 on a 201 voluntary commitment for worsening depression and SI with plans of overdosing on her medication. Chief Complaint "[]". Review of Systems Sleep Information Total Hours of Sleep: 6.5 Meal Information Percent Meal Consumed - Breakfast: 40 Percent Meal Consumed - Lunch: 0 Percent Meal Consumed - Dinner: 90 Nutrition Comment: meal dated, labeled and refrigerated Subjective Subjective Patient was seen & assessed and interval progress reviewed with [treatment team] [nursing and social work] Physical Exam Psychiatric Orientation: alert and oriented x 3 Apperance: appropriately dressed and appropriately groomed Eye Contact: good eye contact Motor Behavior: no abnormal motor movements Speech: normal rate/rhythm/volume of speech Affect: + depressed affect, + anxious affect and + tearful affect Mood: + depressed mood and + anxious mood Thought Process: goal directed thought process Thought Content: reality based without delusions Suicidal Thoughts: denies suicidal thoughts, denies suicidal plan and denies suicidal intent Homicidal Thoughts: denies homicidal thoughts Hallucinations: no auditory hallucinations and no visual hallucinations Cognition: recent memory grossly intact, remote memory grossly intact, attention grossly intact and language grossly intact Estimated Intelligence: consistent with education level Insight: + limited insight and + fair insight Judgment: + limited judgement Vital Signs (Past 24 Hours) Last Vital Signs Temp 37 C 08/04/22 06:39 Pulse 78 08/04/22 06:40 Resp 16 08/04/22 06:39 BP 105/73 08/04/22 06:40 Pulse Ox 99 07/31/22 12:45 O2 Del Method 07/31/22 12:45 Results & Data ([facility]) Laboratory Results Laboratory Results - last 24 hr 07/31/22 12:50 U OH-Alprazolam Confrm 120 H 7-Amino Clonazepam NEGATIVE Ur Nordiazepam Confirm NEGATIVE U OH-ethylflurazepam NEGATIVE U Lorazepam Cnf GC/MS NEGATIVE U Oxazepam Confm GC/MS NEGATIVE Ur Temazepam Confirm NEGATIVE U OH-Triazolam Confirm NEGATIVE U OH-Midazolam Confirm NEGATIVE U Marijuana THC Carboxy 250 H Drug Screen Comment SEE NOTE Current Inpatient Medications Current Inpatient Medications: Current Inpatient Medications Acetaminophen (Acetaminophen 325 Mg Tab) 650 mg PO Q4H PRN PRN Reason: Headache or Minor Fever Stop: 08/30/22 16:03 Last Admin: 08/02/22 09:03 Dose: 650 mg Al Hydrox/Mg Hydrox/Simethicone (Aluminum/Magnesium Susp 30 Ml Udc) 30 ml PO Q4H PRN PRN Reason: GI Upset Stop: 08/30/22 16:03 Alprazolam (Alprazolam 0.5 Mg Tablet) 0.5 mg PO DAILY PRN PRN Reason: panic attack Stop: 08/30/22 16:42 Last Admin: 08/01/22 17:28 Dose: 0.5 mg Bismuth Subsalicylate (Bismuth Subsalicylate Liqd 236 Ml) 15 ml PO PRN PRN PRN Reason: Loose Stool Stop: 08/30/22 16:03 Hydroxyzine HCl (Hydroxyzine Hcl 25 Mg Tab) 50 mg PO HSZ PRN PRN Reason: Insomnia Stop: 08/30/22 16:03 Last Admin: 07/31/22 22:03 Dose: 50 mg Hydroxyzine HCl (Hydroxyzine Hcl 25 Mg Tab) 25 mg PO Q4H PRN PRN Reason: Anxiety Stop: 08/30/22 16:03 Last Admin: 08/02/22 16:13 Dose: 25 mg Lamotrigine (Lamotrigine 25 Mg Tab) 25 mg PO HS JUSTEN Stop: 09/02/22 21:59 Last Admin: 08/03/22 21:41 Dose: 25 mg Magnesium Hydroxide (Magnesium Hydroxide Susp 30 Ml Udc) 30 ml PO DAILY PRN PRN Reason: Constipation Stop: 08/30/22 16:03 Mirtazapine (Mirtazapine Tab 15 Mg Tab) 15 mg PO HS [facility] Stop: 08/31/22 21:59 Last Admin: 08/03/22 21:41 Dose: 15 mg Miscellaneous (Remove Nicoderm Patch) 1 each N/A DAILY@0859 [facility] Stop: 09/01/22 08:58 Last Admin: 08/03/22 09:34 Dose: 1 each Nicotine (Nicotine 7 Mg/24 Hr Tdsy) 7 mg TD QAM [facility] Stop: 08/31/22 13:29 Last Admin: 08/03/22 09:28 Dose: 7 mg Nicotine Polacrilex (Nicotine Polacrilex 2 Mg Gum) 1 piece MT Q1H PRN PRN Reason: nicotine cravings Stop: 08/31/22 13:20 Sodium Chloride (Sodium Chloride 0.65% Na Soln 45 Ml (Chloride)) 1 - 2 sprays NA PRN PRN PRN Reason: Nasal Dryness/Congestion Stop: 08/30/22 16:03 Spironolactone (Spironolactone 25 Mg Tab) 150 mg PO QAM [facility] Stop: 08/31/22 13:44 Last Admin: 08/03/22 09:16 Dose: 150 mg Mental Health & Subst Abuse Tx Psychiatrist Name of Psychiatrist: Georgia Chilel - SUZIE Serrano Psychiatrist's Date Of Appointment With Psychiatric Provider: 08/09/22 Time of Appointment with Psychiatrist: 10am Psychiatric Appointment Comment: Virtual Therapist Name of Therapist: CIELO - Cynthia Montalvo Therapist's Date of Therapist Appointment: 08/10/22 Time of Therapist Appointment: 11:00 AM Therapy Appointment Comment: [facility] [address] [facility], [address], [facility] Post Discharge Appointments Primary Care Physician Name Of Family Doctor/PCP: [facility] [address] Primary Care Time of Appointment with PCP: Please follow up with PCP as needed. Provider Appointment [facility] [place] [address] Other #1: Name of Aftercare Appointment: [facility] (psychiatry) Phone Number of Aftercare Appointment: [phone] Time of Aftercare Appointment: Please call if you are interested in establishing services in [place] Aftercare Appointment Comment: [address] [facility], [facility] [address] #2: Name of Aftercare Appointment: [facility] - Lu Montenegro Phone Number of Aftercare Appointment: [phone] Date of Aftercare Appointment: 08/07/22 Time of Aftercare Appointment: 10:45 AM Aftercare Appointment Comment: Virtual - please check [employer] email for link. #3: Name of Aftercare Appointment: [facility] Living Support (HEALS) Program Phone Number of Aftercare Appointment: Aftercare Appointment Comment: Call if interested in enrolling in program. #4: Name of Aftercare Appointment: [facility] (check-in) - Rakesh Irwin Phone Number of Aftercare Appointment: Date of Aftercare Appointment: 08/07/22 Time of Aftercare Appointment: 1:00 PM Aftercare Appointment Comment: [facility] Contact Information Discharge Discharge Address: [facility] [address] [facility], [place]
--- NOTE | 2022-08-04 08:27 | Discharge Summary ---
Date of Service August 04, 2022 History of Present Illness She presents for psychiatric admission,referred to the ED by [facility], for worsening depression and SI with plan of overdosing on her medication in the context of multiple psychosocial stressors planning for the future and upcoming graduation/academic stress. Academics have been her main stressors due to a deferred class from last semester with outstanding essays, her current classes are going alright. She thinks she is on track to graduate as long as she passes all her remaining classes. 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 Has been depressed since January since she started her senior year and worsened further in April and May. The depression makes it hard for her to go and stay in class, to focus and complete class assignments, has been slightly more socially isolated, significant difficulty with sleeping and eating. Has been experiencing SI since age 12 which have been on and off for many years. SI worsened in January and in April/May got to the point of sometimes thinking of plans. Denies any rehearsal behaviors. Identifies her parents, friends and the future as reasons for living. Also with significant anxiety and near daily panic attacks. Self-harms via cutting (normally her thighs) and burning via a glost kiln placer on thighs typically once weekly. Her appetite has been very low which is also a recent stressor. She goes through cycles of binge eating and then restricting. She only eats a small group of foods like niuean fries. She finds that food "gives me a lot of anxiety". Has taken laxatives before, but has never purged and never exercised excessively. She feels like her appetite actually improved a little with being on stimulant medications. Endorses significant PTSD from childhood events including intrusive flashbacks, nightmares/night terrors (2-3 times per week), mood changes, avoidance. Additional recent history reviewed and confirmed as documented by ED psych CM on 07/31/2022: "The patient presented via [place] [employer] and reports suicidal ideation with a plan to overdose on her medications (reports history of the same when she was 14 years-old, but she cant remember what she took at that time). The patient reports she is medication compliant but is in the process of tapering off of her Prozac, Rexualte and Lamictal and was scheduled to have a psychiatry appointment tomorrow (provider is in her hometown of [place]). The patient reports stressors of school and family life and reports depressive symptoms of anergia, anhedonia, feeling helpless / hopeless and decreased concentration. She reports she only eats 1 meal a day due to her school schedule and reports poor sleep (around 4 hours per night) with problems falling and staying asleep. The patient denies manic symptoms but reports high daily levels of anxiety where she hyperventilates and has internal catatonia. The patient denies hallucinations and paranoid thinking but reports a remote history of auditory hallucinations. The patient reports she vapes and uses marijuana on a daily basis but denies other drug use. The patient denies current self-injurious behaviors but reports a history of cutting and burning when she was a teenager. The patient denies homicidal ideations, aggressive behavior and access to weapons. The patient is willing for treatment and medical clearance explained." She is currently prescribed psychiatric medications of fluoxetine 20 or 30 or 40mg daily, Rexulti 2mg daily, Lamictal 25mg daily, Vyvanse 40mg but doesn't take daily, Xanax 0.5mg BID prn for panic attacks (typically takes once daily or every other day). Psychiatric ROS notable for no current nor history of symptoms of dedra, psychosis (heard whispers for 1-2 months and would see things out of the corner of her eye during a depressive episode and was also uses cannabis, symptoms resolved when she stopped using cannabis). Physical Exam Psychiatric Orientation: alert and oriented x 3 Apperance: appropriately dressed and appropriately groomed Eye Contact: good eye contact Motor Behavior: no abnormal motor movements Speech: normal rate/rhythm/volume of speech Affect: + depressed affect, + anxious affect and + tearful affect Mood: + depressed mood and + anxious mood Thought Process: goal directed thought process Thought Content: reality based without delusions Suicidal Thoughts: denies suicidal thoughts, denies suicidal plan and denies suicidal intent Homicidal Thoughts: denies homicidal thoughts Hallucinations: no auditory hallucinations and no visual hallucinations Cognition: recent memory grossly intact, remote memory grossly intact, attention grossly intact and language grossly intact Estimated Intelligence: consistent with education level Insight: + limited insight and + fair insight Judgment: + limited judgement Vital Signs (Past 24 Hours) Last Vital Signs Temp 37 C 08/04/22 06:39 Pulse 78 08/04/22 06:40 Resp 16 08/04/22 06:39 BP 105/73 08/04/22 06:40 Pulse Ox 99 07/31/22 12:45 O2 Del Method 07/31/22 12:45 Psychiatric Data See daily stay summary. In short, safety was maintained and the patient was cooperative with care. Medication changes included [] and they tolerated this well. A family session was [held] and safety plan was completed prior to discharge. Day of Discharge Assessment Today the patient voices readiness for discharge. They note improvement in mood and deny thoughts to harm self or others. Thoughts remain organized and they are improved from admission. There is no evidence of psychosis. They agree to take mediations as prescribed and keep follow-up appointments. They are stable for discharge to outpatient level of care. Advance Directives Advance Directives Information Provided: Yes Advance Directives: No Mental Health Advance Directive: No Advance Directives on File: No Living Will: No Power of Skating Rink Ice Maker: No Advance Directives Reason:: Declines as Mental Health Visit. Risk Factors Assessment Male: No : Yes Do You Have Access To A Gun?: No Mental Health Diagnoses: Yes Previous Attempt: Yes Family History of Suicide: No Previous Psychiatric Hospitalization: No Protective Factors Assessment Stable Relationships: Yes Supportive Family: Yes Good Rapport with Provider: Yes Discharge Data Lab Results 07/31/22 07/31/22 07/31/22 12:50 12:50 12:50 WBC RBC Hgb Hct MCV MCH MCHC RDW Std Deviation RDW Coeff of Jessica Plt Count MPV Immature Gran % (Auto) Neut % (Auto) Lymph % (Auto) Knott % (Auto) Eos % (Auto) Baso % (Auto) Neut # (Auto) Lymph # (Auto) Knott # (Auto) Eos # (Auto) Baso # (Auto) Immature Gran # (Auto) Sodium Potassium Chloride Carbon Dioxide Anion Gap BUN Creatinine Est Cr Clr Drug Dosing Est GFR ( Amer) Est GFR (Non-Af Amer) BUN/Creatinine Ratio Glucose Calcium Total Bilirubin AST ALT Alkaline Phosphatase Total Protein Albumin Globulin Albumin/Globulin Ratio TSH HCG, Qual Urine Color Yellow Urine Appearance Clear Urine pH 7.0 Ur Specific Broussard 1.011 Urine Protein Negative Urine Glucose (UA) Negative Urine Ketones Negative Urine Blood Negative Urine Nitrite Negative Urine Bilirubin Negative Urine Urobilinogen Negative Ur Leukocyte Esterase Negative Salicylates Urine Opiates Screen Neg Ur Methadone, Qual Neg Acetaminophen Urine Barbiturates Neg Ur Phencyclidine (PCP) Neg U Amphetamin/Meth Scrn Neg MDMA (Ecstasy) Screen Neg U OH-Alprazolam Confrm 120 H U Benzodiazepines Scrn Pos H 7-Amino Clonazepam NEGATIVE Ur Nordiazepam Confirm NEGATIVE U OH-ethylflurazepam NEGATIVE U Lorazepam Cnf GC/MS NEGATIVE U Oxazepam Confm GC/MS NEGATIVE Ur Temazepam Confirm NEGATIVE U OH-Triazolam Confirm NEGATIVE U OH-Midazolam Confirm NEGATIVE Ur Cocaine Metabolite Neg U Marijuana (THC) Screen Pos H U Marijuana THC Carboxy 250 H Drug Screen Comment SEE NOTE Ethyl Alcohol mg/dL SARS-CoV-2, RNA, NAAT 07/31/22 07/31/22 07/31/22 13:00 13:01 13:01 WBC 4.66 L RBC 4.55 Hgb 14.1 Hct 39.6 MCV 87.0 MCH 31.0 MCHC 35.6 RDW Std Deviation 40.1 RDW Coeff of Jessica 12.7 Plt Count 343 MPV 9.6 Immature Gran % (Auto) 0.2 Neut % (Auto) 61.9 Lymph % (Auto) 29.8 Knott % (Auto) 7.3 Eos % (Auto) 0.4 Baso % (Auto) 0.4 Neut # (Auto) 2.88 Lymph # (Auto) 1.39 Knott # (Auto) 0.34 Eos # (Auto) 0.02 Baso # (Auto) 0.02 Immature Gran # (Auto) 0.01 Sodium 138 Potassium 3.6 Chloride 107 Carbon Dioxide 24 Anion Gap 7 BUN 10 Creatinine 0.60 Est Cr Clr Drug Dosing 145.2 Est GFR ( Amer) > 150.0 Est GFR (Non-Af Amer) 130.3 BUN/Creatinine Ratio 16.7 Glucose 100 H Calcium 9.4 Total Bilirubin 0.5 AST 17 ALT 21 Alkaline Phosphatase 43 Total Protein 7.5 Albumin 4.9 Globulin 2.6 Albumin/Globulin Ratio 1.9 TSH HCG, Qual Urine Color Urine Appearance Urine pH Ur Specific Broussard Urine Protein Urine Glucose (UA) Urine Ketones Urine Blood Urine Nitrite Urine Bilirubin Urine Urobilinogen Ur Leukocyte Esterase Salicylates Urine Opiates Screen Ur Methadone, Qual Acetaminophen Urine Barbiturates Ur Phencyclidine (PCP) U Amphetamin/Meth Scrn MDMA (Ecstasy) Screen U OH-Alprazolam Confrm U Benzodiazepines Scrn 7-Amino Clonazepam Ur Nordiazepam Confirm U OH-ethylflurazepam U Lorazepam Cnf GC/MS U Oxazepam Confm GC/MS Ur Temazepam Confirm U OH-Triazolam Confirm U OH-Midazolam Confirm Ur Cocaine Metabolite U Marijuana (THC) Screen U Marijuana THC Carboxy Drug Screen Comment Ethyl Alcohol mg/dL SARS-CoV-2, RNA, NAAT NEGATIVE 07/31/22 07/31/22 07/31/22 13:01 13:01 13:01 WBC RBC Hgb Hct MCV MCH MCHC RDW Std Deviation RDW Coeff of Jessica Plt Count MPV Immature Gran % (Auto) Neut % (Auto) Lymph % (Auto) Knott % (Auto) Eos % (Auto) Baso % (Auto) Neut # (Auto) Lymph # (Auto) Knott # (Auto) Eos # (Auto) Baso # (Auto) Immature Gran # (Auto) Sodium Potassium Chloride Carbon Dioxide Anion Gap BUN Creatinine Est Cr Clr Drug Dosing Est GFR ( Amer) Est GFR (Non-Af Amer) BUN/Creatinine Ratio Glucose Calcium Total Bilirubin AST ALT Alkaline Phosphatase Total Protein Albumin Globulin Albumin/Globulin Ratio TSH 1.374 HCG, Qual Urine Color Urine Appearance Urine pH Ur Specific Broussard Urine Protein Urine Glucose (UA) Urine Ketones Urine Blood Urine Nitrite Urine Bilirubin Urine Urobilinogen Ur Leukocyte Esterase Salicylates < 3.0 L Urine Opiates Screen Ur Methadone, Qual Acetaminophen < 3 L Urine Barbiturates Ur Phencyclidine (PCP) U Amphetamin/Meth Scrn MDMA (Ecstasy) Screen U OH-Alprazolam Confrm U Benzodiazepines Scrn 7-Amino Clonazepam Ur Nordiazepam Confirm U OH-ethylflurazepam U Lorazepam Cnf GC/MS U Oxazepam Confm GC/MS Ur Temazepam Confirm U OH-Triazolam Confirm U OH-Midazolam Confirm Ur Cocaine Metabolite U Marijuana (THC) Screen U Marijuana THC Carboxy Drug Screen Comment Ethyl Alcohol mg/dL < 10.0 SARS-CoV-2, RNA, NAAT 07/31/22 13:01 WBC RBC Hgb Hct MCV MCH MCHC RDW Std Deviation RDW Coeff of Jessica Plt Count MPV Immature Gran % (Auto) Neut % (Auto) Lymph % (Auto) Knott % (Auto) Eos % (Auto) Baso % (Auto) Neut # (Auto) Lymph # (Auto) Knott # (Auto) Eos # (Auto) Baso # (Auto) Immature Gran # (Auto) Sodium Potassium Chloride Carbon Dioxide Anion Gap BUN Creatinine Est Cr Clr Drug Dosing Est GFR ( Amer) Est GFR (Non-Af Amer) BUN/Creatinine Ratio Glucose Calcium Total Bilirubin AST ALT Alkaline Phosphatase Total Protein Albumin Globulin Albumin/Globulin Ratio TSH HCG, Qual Negative Urine Color Urine Appearance Urine pH Ur Specific Broussard Urine Protein Urine Glucose (UA) Urine Ketones Urine Blood Urine Nitrite Urine Bilirubin Urine Urobilinogen Ur Leukocyte Esterase Salicylates Urine Opiates Screen Ur Methadone, Qual Acetaminophen Urine Barbiturates Ur Phencyclidine (PCP) U Amphetamin/Meth Scrn MDMA (Ecstasy) Screen U OH-Alprazolam Confrm U Benzodiazepines Scrn 7-Amino Clonazepam Ur Nordiazepam Confirm U OH-ethylflurazepam U Lorazepam Cnf GC/MS U Oxazepam Confm GC/MS Ur Temazepam Confirm U OH-Triazolam Confirm U OH-Midazolam Confirm Ur Cocaine Metabolite U Marijuana (THC) Screen U Marijuana THC Carboxy Drug Screen Comment Ethyl Alcohol mg/dL SARS-CoV-2, RNA, NAAT Mental Health & Subst Abuse Tx Psychiatrist Name of Psychiatrist: Georgia Chilel - SUZIE Serrano Psychiatrist's Date Of Appointment With Psychiatric Provider: 08/09/22 Time of Appointment with Psychiatrist: 10am Psychiatric Appointment Comment: Virtual Therapist Name of Therapist: CIELO Montalvo Therapist's Date of Therapist Appointment: 08/10/22 Time of Therapist Appointment: 11:00 AM Therapy Appointment Comment: [address] [place] [address] Post Discharge Appointments Primary Care Physician Name Of Family Doctor/PCP: [facility] Primary [facility] Time of Appointment with PCP: Please follow up with PCP as needed. Provider Appointment Comment: [facility], [place] [address] Other #1: Name of Aftercare Appointment: [facility] (psychiatry) Phone Number of Aftercare Appointment: [phone] Time of Aftercare Appointment: Please call if you are interested in establishing services in [place] Aftercare Appointment Comment: [address] [facility], [facility] [address] #2: Name of Aftercare Appointment: [facility] - Lu Montenegro Phone Number of Aftercare Appointment: [phone] Date of Aftercare Appointment: 08/07/22 Time of Aftercare Appointment: 10:45 AM Aftercare Appointment Comment: Virtual - please check [employer] email for link. #3: Name of Aftercare Appointment: [facility] Eating and Living Support (HEALS) Program Phone Number of Aftercare Appointment: Aftercare Appointment Comment: Call if interested in enrolling in program. #4: Name of Aftercare Appointment: [facility] (check-in) - Rakseh Irwin Phone Number of Aftercare Appointment: Date of Aftercare Appointment: 08/07/22 Time of Aftercare Appointment: 1:00 PM Aftercare Appointment Comment: [facility] [place] Contact Information Discharge Discharge Address: [address] [place] [address], [address], [facility] Discharge Plan Discharge Items Reason For Visit: MDD Follow-up/Referrals: [place] [Primary Care Provider] - Medications and DC Order Prescriptions: No Action dextroamphetamine-amphetamine [Adderall] 10 mg tablet 10 mg PO DAILY hydroxyzine HCl 10 mg tablet 10 mg PO TID PRN fluoxetine [Prozac] 20 mg capsule 20 mg PO DAILY Lamictal 25 mg tablet 25 mg PO DAILY Prozac 40 mg PO DAILY Rexulti 1 mg PO DAILY Admission Data Admit Date/Time: 07/31/22 16:04 Attending Provider: Mary Kay Dang Admit Provider: Mary Kay Dang Primary Care Provider: [facility] Other Interventions: PSY Interdisciplinary Discharge Planning Last Done: 08/03/22 10:00 Coding
[2022-08-04] MEDS: SPIRONOLACTONE 25 MG TAB PO SCH (08:49)
[2022-08-04] MEDS: NICOTINE 7 MG/24 HR TDSY TD SCH (08:56)
[2022-08-04] MEDS ORDERED: DESTROY THIS MEDICATION ONE (10:38)
--- NOTE | 2022-08-04 11:05 | Discharge Summary ---
Date of Service August 04, 2022 History of Present Illness Lorraine is a 21 year old woman and [employer] student who was admitted for worsening depression with SI with plans of overdosing. Diagnostically consistent with major depressive disorder, generalized anxiety disorder with panic attacks, PTSD, and ADHD per history with possibility that cannabis use could also be contributing to depression. Possibility of cluster B traits vs trauma component contributing to history of self-harm and chronic intermittent SI. She is deemed in need of psychiatric hospitalization for diagnostic clarification, safety and stabilization, medication management and development of further coping skills. She signed a 72 hour notice but is agreeable to getting treatment in the hospital as long as it is a short admission. Discussed medication treatment options in detail. Discussed risks, benefits and alternatives. Patient would like to continue with lamictal for depression, wants to discontinue fluoxetine and Rexulti (which she hasn't been taking consistently) and would like to start and consented to mirtazapine for sleep, depression, anxiety and appetite. Reviewed side effects including but not limited to: toxic fatal rash with lamictal and need to restart at 25mg daily if she ever misses more than 3 days of doses, sedation, increased appetite and counseled on black box warning of potential for emergence of or increased SI and need to let staff know should this occur or should they feel unsafe. Also discussed importance of seeking emergency care following discharge if this side effect occurs in the future with mirtazapine. (1) MDD (major depressive disorder), recurrent episode, severe: (2) Generalized anxiety disorder with panic attacks: (3) Post traumatic stress disorder (PTSD): (4) Self-harming behavior: (5) ADHD (attention deficit hyperactivity disorder): (6) Cannabis use with anxiety disorder: Physical Exam Psychiatric Orientation: alert and oriented x 3 Apperance: appropriately dressed and appropriately groomed Eye Contact: good eye contact Motor Behavior: no abnormal motor movements Speech: normal rate/rhythm/volume of speech Affect: + depressed affect, + anxious affect and + tearful affect Mood: + depressed mood and + anxious mood Thought Process: goal directed thought process Thought Content: reality based without delusions Suicidal Thoughts: denies suicidal thoughts, denies suicidal plan and denies suicidal intent Homicidal Thoughts: denies homicidal thoughts Hallucinations: no auditory hallucinations and no visual hallucinations Cognition: recent memory grossly intact, remote memory grossly intact, attention grossly intact and language grossly intact Estimated Intelligence: consistent with education level Insight: + limited insight and + fair insight Judgment: + limited judgement Vital Signs (Past 24 Hours) Last Vital Signs Temp 37 C 08/04/22 06:39 Pulse 78 08/04/22 06:40 Resp 16 08/04/22 06:39 BP 105/73 08/04/22 06:40 Pulse Ox 99 07/31/22 12:45 O2 Del Method 07/31/22 12:45 A physical exam was performed in the ER prior to admission to the unit by Dr. Joseph. I accept that physical as correct/medical clearance for the inpatient physical exam. Principal Diagnosis Recurrent Major Depression, current episode Severe, without Psychotic Features Psychiatric Data See daily stay summary. In short, safety was maintained and the patient was cooperative with care. Medication changes included cessation of brexpiprazole a nd fluoxetine and starting lamotrigine, mirtazapine, and PRN hydroxyzine and they tolerated this well. A family session was [held] and safety plan was completed prior to discharge. Day of Discharge Assessment Today the patient voices readiness for discharge. They note improvement in mood and deny thoughts to harm self or others. Thoughts remain organized and they are improved from admission. There is no evidence of psychosis. They agree to take mediations as prescribed and keep follow-up appointments. They are stable for discharge to outpatient level of care. Advance Directives Advance Directives Information Provided: Yes Advance Directives: No Mental Health Advance Directive: No Advance Directives on File: No Living Will: No Power of Drum Barker Operator: No Advance Directives Reason:: Declines as Mental Health Visit. Suicide Risk Level Suicide Risk Level: Low (q15 min observation checks) Risk Factors Assessment Male: No : Yes Do You Have Access To A Gun?: No Mental Health Diagnoses: Yes Previous Attempt: Yes Family History of Suicide: No Previous Psychiatric Hospitalization: No Protective Factors Assessment Stable Relationships: Yes Supportive Family: Yes Good Rapport with Provider: Yes Tobacco Cessation at Discharge Tobacco Cessation Medication Prescribed at Discharge: Not Applicable/Non-Smoker Total Time Total Time Spent: Greater Than 30 Minutes Discharge Data Lab Results 07/31/22 07/31/22 07/31/22 12:50 12:50 12:50 WBC RBC Hgb Hct MCV MCH MCHC RDW Std Deviation RDW Coeff of Jessica Plt Count MPV Immature Gran % (Auto) Neut % (Auto) Lymph % (Auto) [place] % (Auto) Eos % (Auto) Baso % (Auto) Neut # (Auto) Lymph # (Auto) [place] # (Auto) Eos # (Auto) Baso # (Auto) Immature Gran # (Auto) Sodium Potassium Chloride Carbon Dioxide Anion Gap BUN Creatinine Est Cr Clr Drug Dosing Est GFR ( Amer) Est GFR (Non-Af Amer) BUN/Creatinine Ratio Glucose Calcium Total Bilirubin AST ALT Alkaline Phosphatase Total Protein Albumin Globulin Albumin/Globulin Ratio TSH HCG, Qual Urine Color Yellow Urine Appearance Clear Urine pH 7.0 Ur Specific [place] 1.011 Urine Protein Negative Urine Glucose (UA) Negative Urine Ketones Negative Urine Blood Negative Urine Nitrite Negative Urine Bilirubin Negative Urine Urobilinogen Negative Ur Leukocyte Esterase Negative Salicylates Urine Opiates Screen Neg Ur Methadone, Qual Neg Acetaminophen Urine Barbiturates Neg Ur Phencyclidine (PCP) Neg U Amphetamin/Meth Scrn Neg MDMA (Ecstasy) Screen Neg U OH-Alprazolam Confrm 120 H U Benzodiazepines Scrn Pos H 7-Amino Clonazepam NEGATIVE Ur Nordiazepam Confirm NEGATIVE U OH-ethylflurazepam NEGATIVE U Lorazepam Cnf GC/MS NEGATIVE U Oxazepam Confm GC/MS NEGATIVE Ur Temazepam Confirm NEGATIVE U OH-Triazolam Confirm NEGATIVE U OH-Midazolam Confirm NEGATIVE Ur Cocaine Metabolite Neg U Marijuana (THC) Screen Pos H U Marijuana THC Carboxy 250 H Drug Screen Comment SEE NOTE Ethyl Alcohol mg/dL SARS-CoV-2, RNA, NAAT 07/31/22 07/31/22 07/31/22 13:00 13:01 13:01 WBC 4.66 L RBC 4.55 Hgb 14.1 Hct 39.6 MCV 87.0 MCH 31.0 MCHC 35.6 RDW Std Deviation 40.1 RDW Coeff of Jessica 12.7 Plt Count 343 MPV 9.6 Immature Gran % (Auto) 0.2 Neut % (Auto) 61.9 Lymph % (Auto) 29.8 [place] % (Auto) 7.3 Eos % (Auto) 0.4 Baso % (Auto) 0.4 Neut # (Auto) 2.88 Lymph # (Auto) 1.39 [place] # (Auto) 0.34 Eos # (Auto) 0.02 Baso # (Auto) 0.02 Immature Gran # (Auto) 0.01 Sodium 138 Potassium 3.6 Chloride 107 Carbon Dioxide 24 Anion Gap 7 BUN 10 Creatinine 0.60 Est Cr Clr Drug Dosing 145.2 Est GFR ( Amer) > 150.0 Est GFR (Non-Af Amer) 130.3 BUN/Creatinine Ratio 16.7 Glucose 100 H Calcium 9.4 Total Bilirubin 0.5 AST 17 ALT 21 Alkaline Phosphatase 43 Total Protein 7.5 Albumin 4.9 Globulin 2.6 Albumin/Globulin Ratio 1.9 TSH HCG, Qual Urine Color Urine Appearance Urine pH Ur Specific [place] Urine Protein Urine Glucose (UA) Urine Ketones Urine Blood Urine Nitrite Urine Bilirubin Urine Urobilinogen Ur Leukocyte Esterase Salicylates Urine Opiates Screen Ur Methadone, Qual Acetaminophen Urine Barbiturates Ur Phencyclidine (PCP) U Amphetamin/Meth Scrn MDMA (Ecstasy) Screen U OH-Alprazolam Confrm U Benzodiazepines Scrn 7-Amino Clonazepam Ur Nordiazepam Confirm U OH-ethylflurazepam U Lorazepam Cnf GC/MS U Oxazepam Confm GC/MS Ur Temazepam Confirm U OH-Triazolam Confirm U OH-Midazolam Confirm Ur Cocaine Metabolite U Marijuana (THC) Screen U Marijuana THC Carboxy Drug Screen Comment Ethyl Alcohol mg/dL SARS-CoV-2, RNA, NAAT NEGATIVE 07/31/22 07/31/22 07/31/22 13:01 13:01 13:01 WBC RBC Hgb Hct MCV MCH MCHC RDW Std Deviation RDW Coeff of Jessica Plt Count MPV Immature Gran % (Auto) Neut % (Auto) Lymph % (Auto) [place] % (Auto) Eos % (Auto) Baso % (Auto) Neut # (Auto) Lymph # (Auto) [place] # (Auto) Eos # (Auto) Baso # (Auto) Immature Gran # (Auto) Sodium Potassium Chloride Carbon Dioxide Anion Gap BUN Creatinine Est Cr Clr Drug Dosing Est GFR ( Amer) Est GFR (Non-Af Amer) BUN/Creatinine Ratio Glucose Calcium Total Bilirubin AST ALT Alkaline Phosphatase Total Protein Albumin Globulin Albumin/Globulin Ratio TSH 1.374 HCG, Qual Urine Color Urine Appearance Urine pH Ur Specific [place] Urine Protein Urine Glucose (UA) Urine Ketones Urine Blood Urine Nitrite Urine Bilirubin Urine Urobilinogen Ur Leukocyte Esterase Salicylates < 3.0 L Urine Opiates Screen Ur Methadone, Qual Acetaminophen < 3 L Urine Barbiturates Ur Phencyclidine (PCP) U Amphetamin/Meth Scrn MDMA (Ecstasy) Screen U OH-Alprazolam Confrm U Benzodiazepines Scrn 7-Amino Clonazepam Ur Nordiazepam Confirm U OH-ethylflurazepam U Lorazepam Cnf GC/MS U Oxazepam Confm GC/MS Ur Temazepam Confirm U OH-Triazolam Confirm U OH-Midazolam Confirm Ur Cocaine Metabolite U Marijuana (THC) Screen U Marijuana THC Carboxy Drug Screen Comment Ethyl Alcohol mg/dL < 10.0 SARS-CoV-2, RNA, NAAT 07/31/22 13:01 WBC RBC Hgb Hct MCV MCH MCHC RDW Std Deviation RDW Coeff of Jessica Plt Count MPV Immature Gran % (Auto) Neut % (Auto) Lymph % (Auto) [place] % (Auto) Eos % (Auto) Baso % (Auto) Neut # (Auto) Lymph # (Auto) [place] # (Auto) Eos # (Auto) Baso # (Auto) Immature Gran # (Auto) Sodium Potassium Chloride Carbon Dioxide Anion Gap BUN Creatinine Est Cr Clr Drug Dosing Est GFR ( Amer) Est GFR (Non-Af Amer) BUN/Creatinine Ratio Glucose Calcium Total Bilirubin AST ALT Alkaline Phosphatase Total Protein Albumin Globulin Albumin/Globulin Ratio TSH HCG, Qual Negative Urine Color Urine Appearance Urine pH Ur Specific [place] Urine Protein Urine Glucose (UA) Urine Ketones Urine Blood Urine Nitrite Urine Bilirubin Urine Urobilinogen Ur Leukocyte Esterase Salicylates Urine Opiates Screen Ur Methadone, Qual Acetaminophen Urine Barbiturates Ur Phencyclidine (PCP) U Amphetamin/Meth Scrn MDMA (Ecstasy) Screen U OH-Alprazolam Confrm U Benzodiazepines Scrn 7-Amino Clonazepam Ur Nordiazepam Confirm U OH-ethylflurazepam U Lorazepam Cnf GC/MS U Oxazepam Confm GC/MS Ur Temazepam Confirm U OH-Triazolam Confirm U OH-Midazolam Confirm Ur Cocaine Metabolite U Marijuana (THC) Screen U Marijuana THC Carboxy Drug Screen Comment Ethyl Alcohol mg/dL SARS-CoV-2, RNA, NAAT Mental Health & Subst Abuse Tx Psychiatrist Name of Psychiatrist: Georgia Chilel - SUZIE Serrano Psychiatrist's Date Of Appointment With Psychiatric Provider: 08/09/22 Time of Appointment with Psychiatrist: 10am Psychiatric Appointment Comment: Virtual Psychiatrist Release of Information: Obtained, Reviewed and Signed Therapist Name of Therapist: CIELO Montalvo Therapist's Date of Therapist Appointment: 08/10/22 Time of Therapist Appointment: 11:00 AM Therapy Appointment Comment: [facility], [address], [facility] Therapist Release of Information: Obtained, Reviewed and Signed Post Discharge Appointments Primary Care Physician Name Of Family Doctor/PCP: [facility] Time of Appointment with PCP: Please follow up with PCP as needed. Provider Appointment Comment: [place] [address] Primary Care Release of Information: Obtained, Reviewed and Signed Smoking Cessation Counseling Tobacco Cessation Medication Prescribed at Discharge: Not Applicable/Non-Smoker Other #1: Name of Aftercare Appointment: [facility] (psychiatry) Phone Number of Aftercare Appointment: [phone] Time of Aftercare Appointment: Please call if you are interested in establishing services in [place] Aftercare Appointment Comment: [address] [facility], [place] [address] #2: Name of Aftercare Appointment: [facility] - Lu Montenegro Phone Number of Aftercare Appointment: [phone] Date of Aftercare Appointment: 08/07/22 Time of Aftercare Appointment: 10:45 AM Aftercare Appointment Comment: Virtual - please check [employer] email for link. #3: Name of Aftercare Appointment: [facility] Healthy Eating and Living Support (HEALS) Program Phone Number of Aftercare Appointment: Aftercare Appointment Comment: Call if interested in enrolling in program. #4: Name of Aftercare Appointment: [facility] (check-in) Gopi Irwin Phone Number of Aftercare Appointment: Date of Aftercare Appointment: 08/07/22 Time of Aftercare Appointment: 1:00 PM Aftercare Appointment Comment: [facility] Contact Information Discharge Discharge Address: [address] [place] [address], [address], [facility] Discharge Plan Discharge Items Patient Disposition: Home - Self-Care Reason For Visit: MDD Discharge Diagnosis: Recurrent Major Depression, current episode Severe, without Psychotic Features Condition on Discharge: Good Activity: Resume your previous activity Non-emergency contact: Primary Care Provider and Psychiatrist Call non-emergency contact if: you have any medication questions and your symptoms worsen Follow-up/Referrals: [facility] [Primary Care Provider] - Diet: Regular Addtl Attending Provider Instructions: SPECIAL CARE INSTRUCTIONS: 1. Follow through with your scheduled aftercare appointments. If unable to keep an appointment, please call to reschedule. 2. Take your medication only as prescribed. Medication should not be changed or stopped without the approval of your doctor. In the event of worsening symptoms or concerns about side effects, contact your doctor immediately. 3. Utilize new healthy coping skills, anger management skills, and stress management skills learned during your hospitalization. Journal feelings and process them with a support person. Identify stressors or situations that may result in relapse, deterioration or inappropriate behaviors and develop a plan to deal with those issues. 4. If your coping skills are ineffective and you are in crisis, contact your outpatient providers for direction. If unable to reach your providers, please call the [facility] CRISIS LINE AT , go to the [facility] walk-in center at [address] [place] [address] A, [place], or go to the closest Emergency Room. 5. Avoid alcohol and un-prescribed drugs. 6. You have been provided with the Mental Health Advance Directives Pamphlet for your review. 7. Your condition is stable for discharge to outpatient level of care, but recovery is an ongoing process. Ifthoughts to harm yourself or others return, follow the safety plan developed during your stay. Planning for a safe return home includes securing weapons. Our treatment team recommends weaponsbe removed from the home until your outpatient provider reassesses your progress. In rare cases where the items themselvescannot be removed, guns and ammunitionshould be secured separatelyand keys stored by a reliable personoutside of the home. If you were admitted on an involuntary commitment, the police or other legal authorities may be involved in this process. AFTERCARE APPOINTMENTS: * Please call your insurance company prior to your scheduled appointment to confirm your aftercare providers are covered. Take your insurance information to your appointments. WHO TO CALL AND WHEN: Medical Emergencies: For questions or emergencies related to your hospital stay, please contact the Inpatient Behavioral Health Unit at [phone]. A home therapy clinician is on-call 14/01 for the Behavioral Health Unit for emergencies At any time you feel your situation is an emergency, you may also call 911 immediately. Pending Studies at Discharge: No Stand-Alone Forms: [facility], Smoking Cessation Medications and DC Order Prescriptions: New lamotrigine [Lamictal] 25 mg Tablet 25 mg PO HS 30 Days Qty: 30 0RF hydroxyzine HCl 25 mg Tablet 25 mg PO Q4H PRN (Reason: anxiety or insomnia) 30 Days Qty: 120 0RF mirtazapine 15 mg Tablet 15 mg PO HS 30 Days Qty: 30 0RF spironolactone 25 mg Tablet 150 mg PO QAM 30 Days Qty: 180 0RF Discontinued fluoxetine [Prozac] 20 mg capsule 60 mg PO DAILY alprazolam 0.5 mg tablet 0.5 mg PO BID PRN (Reason: Anxiety) lamotrigine 25 mg tablet 25 mg PO DAILY Rexulti 1 mg tablet 1.5 mg PO HS Discharge Orders: Discharge Order (Routine); Ordered 08/04/22 Ordered By: Andriy Jimenez Admission Data Admit Date/Time: 07/31/22 16:04 Attending Provider: Mary Kay Dang Admit Provider: Mary Kay Dang Primary Care Provider: [facility] Other Interventions: PSY Interdisciplinary Discharge Planning Last Done: 08/04/22 10:29 Coding Level of Care Code 97662 D/C day mgmt > 30 min Time Spent (min) 35
== END 2022-08-04 12:10 | disposition home or self-care (01) | DRG 885 ==
LOC: ED 12:37 → 3S 16:04 → MERGE 16:04 → 3S 16:19